=== PATIENT | female | born 1935 | race Caucasian/White ===

== ENCOUNTER 2021-05-27 14:27 | Inpatient (IN) | payer MEDICARE ==
[2021-05-27] MEDS ORDERED: Sodium Chloride 0.9% 10 ML Syringe FLUSH PRN ×2 (15:15→19:11)
[2021-05-27] MEDS ORDERED: Bumetanide 1 MG/4 ML MDV IVPUSH ONE (15:16)
--- NOTE | 2021-05-27 15:21 | EDM.PDOC ---
ED HPI GENERAL MEDICAL PROBLEM - General Chief Complaint: Cardiovascular Problem Stated Complaint: MEDICAL [facility] Time Seen by Provider: 05/27/21 15:07 Source of Information: Reports: Patient, Family, RN Notes Reviewed History Limitations: Reports: No Limitations - History of Present Illness INITIAL COMMENTS - FREE TEXT/NARRATIVE: 45-year-old female presents emergency department today via EMS services for increasing shortness of breath. She has a known history of congestive heart failure has had some problems with chronic anemia of unknown etiology. Was recently admitted the hospital in [place] end of April evaluation of the GI bleed unfortunately colonoscopy could not be completed and etiology is still yet unknown. States over the last 2 days progressively more short of breath usually uses oxygen at night but now has become oxygen dependent all the time has seen the increase fluid retention in her legs above the knee will get short of breath with any exertion at all become so weak she cannot bear weight. - Related Data Allergies Allergy/AdvReac Type Severity Reaction Status Date / Time No Known Allergies Allergy Verified 05/27/21 14:36 Home Meds: Home Meds Acetaminophen [Tylenol Arthritis] 650 mg PO Q8HR 05/27/21 [History] Bumetanide 1 mg PO DAILY 05/27/21 [History] Losartan [Cozaar] 50 mg PO DAILY 05/27/21 [History] Metoprolol Succinate 50 mg PO DAILY 05/27/21 [History] Nitroglycerin [Nitrostat] 0.4 mg SL ASDIRECTED PRN 05/27/21 [History] Rivaroxaban [Xarelto] 20 mg PO DAILY 05/27/21 [History] Simvastatin 20 mg PO DAILY 05/27/21 [History] Spironolactone [Aldactone] 25 mg PO DAILY 05/27/21 [History] amLODIPine [Norvasc] 5 mg PO DAILY 05/27/21 [History] Past Medical History Cardiovascular History: Reports: Afib, Heart Failure, High Cholesterol, Hypertension Respiratory History: Reports: Other (See Below) (Pulmonary hypertension) Gastrointestinal History: Reports: GI Bleed Oncologic (Cancer) History: Reports: Breast Social & Family History - Tobacco Use Tobacco Use Status *Q: Never Tobacco User ED ROS GENERAL - Review of Systems Review Of Systems: See Below Constitutional: Reports: Weakness, Fatigue. Denies: Fever, Chills HEENT: Reports: No Symptoms Respiratory: Reports: Shortness of Breath Cardiovascular: Reports: Dyspnea on Exertion, Edema GI/Abdominal: Reports: No Symptoms ED EXAM, GENERAL - Physical Exam Exam: See Below Exam Limited By: No Limitations General Appearance: Alert, Mild Distress Neck: Other (Differential +3) Respiratory/Chest: Chest Non-Tender, Decreased Breath Sounds, Crackles Cardiovascular: Irregularly Irregular GI/Abdominal: Soft, Non-Tender Extremities: Pedal Edema #1 Interpretation EKG Date: 05/27/21 Time: 15:57 Rhythm: A-Fib Rate (Beats/Min): 94 [place]: RAD-Right [place] Deviation P-Wave: Absent QRS: Normal ST-T: Normal QT: Normal Comparison: NA - No Prior EKG Course - Vital Signs Last Recorded V/S: Last Vital Signs Temp 98.1 F 05/27/21 17:27 Pulse 75 05/27/21 17:51 Resp 19 05/27/21 17:51 BP 88/40 L 05/27/21 17:51 Pulse Ox 99 05/27/21 17:51 - Orders/Labs/Meds Orders: Active Orders 24 hr Category Date Time Status Cardiac Monitoring [RC] .As Directed Care 05/27/21 15:15 Active Chest 1V Frontal [CR] Stat Exams 05/27/21 15:16 Taken PATIENT RETYPE [BBK] Stat Lab 05/27/21 15:56 Results RED BLOOD CELLS LP [BBK] Stat Lab 05/27/21 15:56 Results TYPE AND SCREEN [BBK] Stat Lab 05/27/21 15:56 Results Sodium Chloride 0.9% [Saline Flush] Med 05/27/21 15:15 Active 10 ml FLUSH ASDIRECTED PRN Isolation [COMM] Stat Oth 05/27/21 15:19 Ordered Saline Lock Insert [OM.PC] Stat Oth 05/27/21 15:15 Ordered EKG 12 Lead [EK] Stat Ther 05/27/21 15:16 Ordered Medication Orders Sodium Chloride (Sodium Chloride 0.9% 10 Ml Syringe) 10 ml FLUSH ASDIRECTED PRN PRN Reason: Keep Vein Open Last Admin: 05/27/21 16:43 Dose: 10 ml Documented by: KETTY Labs: Laboratory Tests 05/27/21 05/27/21 05/27/21 Range/Units 15:19 15:30 15:30 WBC 7.6 (4.5-11.0) K/uL RBC 2.10 L (3.30-5.50) M/uL Hgb 5.6 L* (12.0-15.0) g/dL Hct 19.6 L (36.0-48.0) % MCV 93 (80-98) fL MCH 27 (27-31) pg MCHC 29 L (32-36) % Plt Count 260 (150-400) K/uL Neut % (Auto) 82.2 H (36-66) % Lymph % (Auto) 7.3 L (24-44) % [place] % (Auto) 8.9 H (2-6) % Eos % (Auto) 1.1 L (2-4) % Baso % (Auto) 0.5 (0-1) % Sodium 139 L (140-148) mmol/L Potassium 5.6 H (3.6-5.2) mmol/L Chloride 102 (100-108) mmol/L Carbon Dioxide 30 (21-32) mmol/L Anion Gap 12.6 (5.0-14.0) mmol/L BUN 90 H* (7-18) mg/dL Creatinine 1.5 H (0.6-1.0) mg/dL Est Cr Clr Drug Dosing 22.08 mL/min Estimated GFR (MDRD) 33 L (>60) Glucose 112 H (74-106) mg/dL Lactic Acid (0.4-2.0) mmol/L Calcium 8.9 (8.5-10.1) mg/dL Total Bilirubin 0.4 (0.2-1.0) mg/dL AST 9 L (15-37) U/L ALT 15 (12-78) U/L Alkaline Phosphatase 51 (46-116) U/L Troponin I High Sens 20.1 (<=60.3) pg/mL NT-Pro-B Natriuret Pep 6459 H (5-450) pg/mL Total Protein 5.9 L (6.4-8.2) g/dL Albumin 3.5 (3.4-5.0) g/dL Globulin 2.4 (2.3-3.5) g/dL Albumin/Globulin Ratio 1.5 (1.2-2.2) Influenza Type A RNA Negative (NEGATIVE) RSV RNA (INAAT) Negative (NEGATIVE) Influenza Type B RNA Negative (NEGATIVE) SARS-CoV-2 RNA (LLOYD) Negative (NEGATIVE) Blood Type Gel Antibody Screen Crossmatch 05/27/21 05/27/21 Range/Units 15:30 15:56 WBC (4.5-11.0) K/uL RBC (3.30-5.50) M/uL Hgb (12.0-15.0) g/dL Hct (36.0-48.0) % MCV (80-98) fL MCH (27-31) pg MCHC (32-36) % Plt Count (150-400) K/uL Neut % (Auto) (36-66) % Lymph % (Auto) (24-44) % Armstrong % (Auto) (2-6) % Eos % (Auto) (2-4) % Baso % (Auto) (0-1) % Sodium (140-148) mmol/L Potassium (3.6-5.2) mmol/L Chloride (100-108) mmol/L Carbon Dioxide (21-32) mmol/L Anion Gap (5.0-14.0) mmol/L BUN (7-18) mg/dL Creatinine (0.6-1.0) mg/dL Est Cr Clr Drug Dosing mL/min Estimated GFR (MDRD) (>60) Glucose (74-106) mg/dL Lactic Acid 1.5 (0.4-2.0) mmol/L Calcium (8.5-10.1) mg/dL Total Bilirubin (0.2-1.0) mg/dL AST (15-37) U/L ALT (12-78) U/L Alkaline Phosphatase (46-116) U/L Troponin I High Sens (<=60.3) pg/mL NT-Pro-B Natriuret Pep (5-450) pg/mL Total Protein (6.4-8.2) g/dL Albumin (3.4-5.0) g/dL Globulin (2.3-3.5) g/dL Albumin/Globulin Ratio (1.2-2.2) Influenza Type A RNA (NEGATIVE) RSV RNA (INAAT) (NEGATIVE) Influenza Type B RNA (NEGATIVE) SARS-CoV-2 RNA (LLOYD) (NEGATIVE) Blood Type O POSITIVE Gel Antibody Screen Negative Crossmatch See Detail Meds: Medications Generic Name Dose Route Start Last Admin Trade Name Freq PRN Reason Stop Dose Admin Sodium Chloride 10 ml 05/27/21 15:15 05/27/21 16:43 Sodium Chloride 0.9% 10 Ml Syringe FLUSH 10 ml ASDIRECTED PRN Administration Keep Vein Open Discontinued Medications Generic Name Dose Route Start Last Admin Trade Name Freq PRN Reason Stop Dose Admin Bumetanide 2 mg 05/27/21 15:16 05/27/21 16:42 Bumetanide 1 Mg/4 Ml Mdv IVPUSH 05/27/21 15:17 1 mg ONETIME ONE Administration - Re-Assessments/Exams Free Text/Narrative Re-Assessment/Exam: 05/27/21 16:54 Called discussed case the hospitalist on-call at 1630 felt she was not appropriate admission for this facility recommend transfer to higher level clear called discussed the case with [facility] and [facility] no beds are available at this time she is on the list at [facility] Departure - Departure Time of Disposition: 17:54 Disposition: Admitted As Inpatient 67 Condition: Fair Clinical Impression: Severe anemia CHF exacerbation Qualifiers: Heart failure type: unspecified Qualified Code(s): I50.9 - Heart failure, unspecified Referrals: PCP,None [Ordering Only Provider] - Forms: ED Department Discharge Sepsis Event Note (ED) - Evaluation Sepsis Screening Result: No Definite Risk - Focused Exam Vital Signs: Vital Signs Temp Temp Pulse Resp BP Pulse Ox 05/27/21 17:51 75 19 88/40 L 99 05/27/21 17:27 98.1 F 24 H 106/49 L 100 05/27/21 17:15 68 22 H 108/57 L 100 05/27/21 16:49 87 19 102/52 L 100 05/27/21 15:36 84 17 98/45 L 100 05/27/21 14:35 98.2 F 83 20 100/45 L 100 - My Orders Last 24 Hours: My Active Orders 05/27/21 15:15 Cardiac Monitoring [RC] .As Directed Sodium Chloride 0.9% [Saline Flush] 10 ml FLUSH ASDIRECTED PRN Saline Lock Insert [OM.PC] Stat 05/27/21 15:16 Chest 1V Frontal [CR] Stat EKG 12 Lead [EK] Stat 05/27/21 15:19 Isolation [COMM] Stat 05/27/21 15:56 PATIENT RETYPE [BBK] Stat RED BLOOD CELLS LP [BBK] Stat TYPE AND SCREEN [BBK] Stat - Assessment/Plan Last 24 Hours: My Active Orders 05/27/21 15:15 Cardiac Monitoring [RC] .As Directed Sodium Chloride 0.9% [Saline Flush] 10 ml FLUSH ASDIRECTED PRN Saline Lock Insert [OM.PC] Stat 05/27/21 15:16 Chest 1V Frontal [CR] Stat EKG 12 Lead [EK] Stat 05/27/21 15:19 Isolation [COMM] Stat 05/27/21 15:56 PATIENT RETYPE [BBK] Stat RED BLOOD CELLS LP [BBK] Stat TYPE AND SCREEN [BBK] Stat Plan: Assessment Acuity = acute Site and laterality = exacerbation congestive heart failure with severe anemia Etiology = unknown Manifestations = dyspnea Location of injury = Home Lab values = hemoglobin low at 5.6 consistent with normochromic anemia potassium elevated 5.6 consistent with hyperkalemia BUN elevated 90 creatinine elevated 1.5 consistent chronic renal failure stage T3a lactic acid normal 1.5 BNP markedly elevated 6459 consistent with marked fluid overload chest x-ray shows cardiomegaly, Covid was negative influenza AMB negative RSV negative Plan Discussed the case with hospitalist he agreed to admit to the hospital pending transfer This note was dictated using [employer] voice recognition software please call with any questions on syntax or grammar.
[2021-05-27 16:33] LABS: CORONAVIRUS COVID-19 NAA NEGATIVE (NEGATIVE)
--- NOTE | 2021-05-27 19:08 | PCM.HP.2 ---
H&P History of Present Illness - General Date of Service: 05/27/21 Admit Problem/Dx: Admission Diagnosis/Problem Admission Diagnosis/Problem Anemia Source of Information: Patient, Family, Provider, RN Notes Reviewed History Limitations: Reports: No Limitations - History of Present Illness Initial Comments - Free Text/Narative: Ms. Whiting is an 85-year-old woman who was admitted through the emergency department with weakness, shortness of breath, peripheral edema, hypoxia, secondary to CHF exacerbation and severe anemia. She has a known history of anemia and probable GI bleed, source of which has not been identified. She apparently did undergo EGD and colonoscopy in [place]. EGD reportedly showed no obvious source of bleeding and the colonoscopy was incomplete. They recommended further evaluation including virtual colonoscopy with CT scan and possible labeled red blood cell study. She has known diastolic congestive heart failure as well as severe pulmonary hypertension with cor pulmonale. Over the past week she has become extremely weak to the point that she is unable to walk and is short of breath even at rest. She has noted intermittent episodes of melenic appearing stool. There has been a significant increase in her peripheral edema. She does have underlying chronic kidney disease stage IIIb. Evaluation in the emergency department she was found to be hypoxic which has been corrected with supplemental oxygen. Hemoglobin was severely low at 5.6 and she has started transfusion of 1 unit of red blood cells. Plan had been for transfer to a tertiary care center but there are no beds available [facility]. - Related Data Allergies/Adverse Reactions: Allergies Allergy/AdvReac Type Severity Reaction Status Date / Time No Known Allergies Allergy Verified 05/27/21 14:36 Home Medications: Home Meds Acetaminophen [Tylenol Arthritis] 650 mg PO Q8HR 05/27/21 [History] Bumetanide 1 mg PO DAILY 05/27/21 [History] Losartan [Cozaar] 50 mg PO DAILY 05/27/21 [History] Metoprolol Succinate 50 mg PO DAILY 05/27/21 [History] Nitroglycerin [Nitrostat] 0.4 mg SL ASDIRECTED PRN 05/27/21 [History] Rivaroxaban [Xarelto] 20 mg PO DAILY 05/27/21 [History] Simvastatin 20 mg PO DAILY 05/27/21 [History] Spironolactone [Aldactone] 25 mg PO DAILY 05/27/21 [History] amLODIPine [Norvasc] 5 mg PO DAILY 05/27/21 [History] Past Medical History Cardiovascular History: Reports: Afib, Heart Failure, High Cholesterol, Hypertension Respiratory History: Reports: Other (See Below) (Pulmonary hypertension) Gastrointestinal History: Reports: GI Bleed Oncologic (Cancer) History: Reports: Breast Social & Family History - Tobacco Use Tobacco Use Status *Q: Never Tobacco User H&P Review of Systems - Review of Systems: Review Of Systems: See Below General: Reports: Malaise, Weakness, Fatigue, Decreased Appetite. Denies: Fever, Chills HEENT: Reports: No Symptoms Pulmonary: Reports: Shortness of Breath. Denies: Wheezing, Pleuritic Chest Pain, Cough, Sputum, Hemoptysis Cardiovascular: Reports: Dyspnea on Exertion, Edema. Denies: Chest Pain, Palpitations, Orthopnea, PND, Lightheadedness Gastrointestinal: Reports: No Symptoms Genitourinary: Reports: No Symptoms Musculoskeletal: Reports: Joint Pain (Chronic bilateral knee pain) Skin: Reports: No Symptoms Psychiatric: Reports: No Symptoms Neurological: Reports: No Symptoms Hematologic/Lymphatic: Reports: No Symptoms Immunologic: Reports: No Symptoms Exam - Exam Exam: See Below - Vital Signs Vital Signs: Last Vital Signs Temp 98.1 F 05/27/21 17:27 Pulse 75 05/27/21 17:51 Resp 19 05/27/21 17:51 BP 88/40 L 05/27/21 17:51 Pulse Ox 99 05/27/21 17:51 Weight: 170 lb - Exam Quality Assessment: Supplemental Oxygen, DVT Prophylaxis General: Alert, Oriented, Cooperative, Mild Distress HEENT: Conjunctiva Clear, Hearing Intact, Mucosa Moist & [place], Normal Nasal Septum, Posterior Pharynx Clear, Pupils Equal Neck: Supple, Trachea Midline Lungs: Clear to Auscultation, Normal Respiratory Effort, Decreased Breath Sounds. No: Rales, Rhonchi, Wheezing Cardiovascular: Regular Rate, Normal S1, Normal S2, Irregular Rhythm, Systolic Murmur. No: Diastolic Murmur GI/Abdominal Exam: Soft, Non-Tender, No Organomegaly, No Distention Back Exam: Normal Inspection, Full Range of Motion Extremities: Non-Tender, Pedal Edema Skin: Warm, Dry, Intact Neurological: Cranial Nerves Intact, Strength Equal Bilateral, Normal Speech, Normal Tone, Sensation Intact. No: Focal Deficit Neuro Extensive - Mental Status: Alert, Oriented x3, Normal Mood/Affect, Normal Cognition, Memory Intact - Patient Data Lab Results Last 24 hrs: Laboratory Results - last 24 hr 05/27/21 05/27/21 05/27/21 Range/Units 15:19 15:30 15:30 WBC 7.6 (4.5-11.0) K/uL RBC 2.10 L (3.30-5.50) M/uL Hgb 5.6 L* (12.0-15.0) g/dL Hct 19.6 L (36.0-48.0) % MCV 93 (80-98) fL MCH 27 (27-31) pg MCHC 29 L (32-36) % Plt Count 260 (150-400) K/uL Neut % (Auto) 82.2 H (36-66) % Lymph % (Auto) 7.3 L (24-44) % Reynolds % (Auto) 8.9 H (2-6) % Eos % (Auto) 1.1 L (2-4) % Baso % (Auto) 0.5 (0-1) % Sodium 139 L (140-148) mmol/L Potassium 5.6 H (3.6-5.2) mmol/L Chloride 102 (100-108) mmol/L Carbon Dioxide 30 (21-32) mmol/L Anion Gap 12.6 (5.0-14.0) mmol/L BUN 90 H* (7-18) mg/dL Creatinine 1.5 H (0.6-1.0) mg/dL Est Cr Clr Drug Dosing 22.08 mL/min Estimated GFR (MDRD) 33 L (>60) Glucose 112 H (74-106) mg/dL Lactic Acid (0.4-2.0) mmol/L Calcium 8.9 (8.5-10.1) mg/dL Total Bilirubin 0.4 (0.2-1.0) mg/dL AST 9 L (15-37) U/L ALT 15 (12-78) U/L Alkaline Phosphatase 51 (46-116) U/L Troponin I High Sens 20.1 (<=60.3) pg/mL NT-Pro-B Natriuret Pep 6459 H (5-450) pg/mL Total Protein 5.9 L (6.4-8.2) g/dL Albumin 3.5 (3.4-5.0) g/dL Globulin 2.4 (2.3-3.5) g/dL Albumin/Globulin Ratio 1.5 (1.2-2.2) Influenza Type A RNA Negative (NEGATIVE) RSV RNA (INAAT) Negative (NEGATIVE) Influenza Type B RNA Negative (NEGATIVE) SARS-CoV-2 RNA (LLOYD) Negative (NEGATIVE) Blood Type Gel Antibody Screen Crossmatch 05/27/21 05/27/21 Range/Units 15:30 15:56 WBC (4.5-11.0) K/uL RBC (3.30-5.50) M/uL Hgb (12.0-15.0) g/dL Hct (36.0-48.0) % MCV (80-98) fL MCH (27-31) pg MCHC (32-36) % Plt Count (150-400) K/uL Neut % (Auto) (36-66) % Lymph % (Auto) (24-44) % [place] % (Auto) (2-6) % Eos % (Auto) (2-4) % Baso % (Auto) (0-1) % Sodium (140-148) mmol/L Potassium (3.6-5.2) mmol/L Chloride (100-108) mmol/L Carbon Dioxide (21-32) mmol/L Anion Gap (5.0-14.0) mmol/L BUN (7-18) mg/dL Creatinine (0.6-1.0) mg/dL Est Cr Clr Drug Dosing mL/min Estimated GFR (MDRD) (>60) Glucose (74-106) mg/dL Lactic Acid 1.5 (0.4-2.0) mmol/L Calcium (8.5-10.1) mg/dL Total Bilirubin (0.2-1.0) mg/dL AST (15-37) U/L ALT (12-78) U/L Alkaline Phosphatase (46-116) U/L Troponin I High Sens (<=60.3) pg/mL NT-Pro-B Natriuret Pep (5-450) pg/mL Total Protein (6.4-8.2) g/dL Albumin (3.4-5.0) g/dL Globulin (2.3-3.5) g/dL Albumin/Globulin Ratio (1.2-2.2) Influenza Type A RNA (NEGATIVE) RSV RNA (INAAT) (NEGATIVE) Influenza Type B RNA (NEGATIVE) SARS-CoV-2 RNA (LLOYD) (NEGATIVE) Blood Type O POSITIVE Gel Antibody Screen Negative Crossmatch See Detail Result Diagrams: 05/27/21 15:30 05/27/21 15:30 Sepsis Event Note - Evaluation Sepsis Screening Result: No Definite Risk - Focused Exam Vital Signs: Vital Signs Temp Temp Pulse Resp BP Pulse Ox 05/27/21 17:51 75 19 88/40 L 99 05/27/21 17:27 98.1 F 24 H 106/49 L 100 05/27/21 17:15 68 22 H 108/57 L 100 05/27/21 16:49 87 19 102/52 L 100 05/27/21 15:36 84 17 98/45 L 100 05/27/21 14:35 98.2 F 83 20 100/45 L 100 *Q Meaningful Use (ADM) - VTE *Q VTE Pharmacological Contraindications *Q: High INR Value - VTE Risk Assess *Q Each Risk Factor Represents 1 Point: Swollen Legs, Current, Obesity ( BMI > 25 kg/m2), Congestive heart failure (CHF) Total Score 1 Point Risk Factors: 3 Each Risk Factor Represents 2 Points: Malignancy (present or previous) Total Score 2 Point Risk Factors: 2 Each Risk Factor Represents 3 Points: Age 75 Years or Greater Total Score 3 Point Risk Factors: 3 Each Risk Factor Represents 5 Points: None Total Score 5 Point Risk Factors: 0 Venous Thromboembolism Risk Factor Score *Q: 8 Problem List Initiated/Reviewed/Updated: Yes Orders Last 24hrs: Active Orders 24 hr Category Date Time Status Patient Status Manage Transfer [TRANSFER] Routine ADT 05/27/21 18:51 Active Cardiac Monitoring [RC] .As Directed Care 05/27/21 15:15 Active Chest 1V Frontal [CR] Stat Exams 05/27/21 15:16 Taken PATIENT RETYPE [BBK] Stat Lab 05/27/21 15:56 Results RED BLOOD CELLS LP [BBK] Stat Lab 05/27/21 15:56 Results TYPE AND SCREEN [BBK] Stat Lab 05/27/21 15:56 Results Sodium Chloride 0.9% [Saline Flush] Med 05/27/21 15:15 Active 10 ml FLUSH ASDIRECTED PRN Isolation [COMM] Stat Oth 05/27/21 15:19 Ordered Saline Lock Insert [OM.PC] Stat Oth 05/27/21 15:15 Ordered Resuscitation Status Routine Resus Stat 05/27/21 18:57 Ordered EKG 12 Lead [EK] Stat Ther 05/27/21 15:16 Ordered Medication Orders Sodium Chloride (Sodium Chloride 0.9% 10 Ml Syringe) 10 ml FLUSH ASDIRECTED PRN PRN Reason: Keep Vein Open Last Admin: 05/27/21 16:43 Dose: 10 ml Documented by: KETTY Assessment/Plan Comment:: ASSESSMENT AND PLAN SEVERE ANEMIA-likely secondary to chronic intermittent GI bleed. Complicated by current anticoagulation with Xarelto. Previous evaluation in [place] included incomplete colonoscopy and EGD with no obvious source of blood loss according to patient history. -Transfuse 1 unit of red blood cells as ordered in the emergency department -Protonix -Follow-up hemoglobin this evening and in a.m. -Type and cross to hold 1 additional unit of red blood cells -Goal hemoglobin of greater than 8 because of underlying health problems including diastolic congestive heart failure, hypoxia, and pulmonary hypertension with cor pulmonale -Continue Xarelto for now, may need to discontinue because of ongoing bleeding and complications of her severe anemia DIASTOLIC CONGESTIVE HEART FAILURE/PULMONARY HYPERTENSION-she has been seen by cardiology earlier this year in [place] with recommendation for further evaluation concerning her pulmonary hypertension. -Hold Norvasc and diuretic therapy -Continue all other outpatient CHF medications -Bumex IV given in the emergency department, hold on further diuretic therapy tonight, reassess in a.m. HYPERKALEMIA-likely secondary to intravascular volume depletion and chronic kidney disease -Kayexalate 15 g p.o. tonight -Reassess potassium in a.m. CHRONIC KIDNEY DISEASE STAGE IIIb -Closely monitor renal function and urine output CHRONIC ATRIAL FIBRILLATION -Continue Xarelto as above MAINTENANCE ISSUES -DVT prophylaxis; current therapy with Xarelto should provide adequate DVT prophylaxis -GI prophylaxis; Protonix as above -Barnhart catheter; not indicated -Nutrition; clear liquid diet -Nicotine dependence; not required CODE STATUS-FULL CODE, discussed with patient and daughter, she is considering her options for ongoing management. She would like to remain full code at this time. ADMISSION STATUS-patient will be admitted to inpatient status, expect at least a 2 night hospital stay for evaluation and management of problems as outlined above. At the time of this admission I do not reasonably expected evaluation and management of this problem will require more than a 96 hour hospital stay. DISPOSITION-anticipate discharge to home after the hospital stay. PRIMARY CARE PROVIDER-she is currently in the process of establishing care with a primary care provider - Mortality Measure Prognosis:: Poor
[2021-05-27] MEDS ORDERED: Ondansetron 4 MG/2 ML SDV IV PRN (19:11)
[2021-05-27] MEDS ORDERED: Polyethylene Glycol 3350 Powder 17 GM Packet PO PRN (19:11)
[2021-05-27] MEDS ORDERED: Sodium Polystyrene Sulfonate 15 GM/60 ML Susp 60 ML Bot PO ONE (19:11)
[2021-05-27] MEDS: Pantoprazole 40 MG Vial IV SCH (20:27)
[2021-05-28] MEDS: Losartan 50 MG Tab PO SCH (08:59)
[2021-05-28] MEDS ORDERED: Non-Formulary Medication 1 Each (Simvastatin [Simvastatin] 20 MG Tablet) PO SCH (09:00)
[2021-05-28] MEDS: atorvaSTATin 10 MG Tab PO SCH (09:00)
[2021-05-28] MEDS: Spironolactone 25 MG Tab PO SCH (09:02)
[2021-05-28] MEDS: Metoprolol Succinate 50 MG Tab.ER PO SCH (09:03)
[2021-05-28] MEDS: Pantoprazole 40 MG Vial IV SCH (09:03)
--- NOTE | 2021-05-28 09:13 | CR ---
CHEST: Portable 05/27/2021 at 3:34 PM CLINICAL HISTORY:Chest pain COMPARISON:None FINDINGS: The heart is enlarged. Pulmonary vascular is normal. There is a left pleural effusion. There is some patchy density in both infrahilar regions. There are atherosclerotic changes in the aorta. Impression: Cardiomegaly. Small left pleural effusion Bilateral infrahilar airspace disease may represent patchy atelectasis or infiltrate. Upright two-view chest would be helpful if clinically relevant
--- NOTE | 2021-05-28 10:28 | PCM.PN ---
- General Info Date of Service: 05/28/21 Subjective Update: No acute events overnight. Patient does not really feel any different today than yesterday. Still feels tired, weak and short of breath. In the morning she has a cough with some clear sputum. No fevers. No melena or hematochezia. Hemoglobin level essentially stable from last night to this morning. Still requiring 2 L of supplemental oxygen. Lower extremity edema is about the same as yesterday. Kidney function stable. Potassium has improved. Functional Status: Reports: Pain Controlled, Tolerating Diet - Review of Systems General: Reports: Weakness Pulmonary: Reports: Shortness of Breath, Cough Cardiovascular: Reports: Edema - Patient Data Vitals - Most Recent: Last Vital Signs Temp 36.7 C 05/28/21 08:00 Pulse 81 05/28/21 10:00 Resp 23 H 05/28/21 10:00 BP 106/69 05/28/21 10:00 Pulse Ox 94 L 05/28/21 10:00 Weight - Most Recent: 86.682 kg I&O - Last 24 Hours: Intake & Output 05/27/21 05/28/21 05/28/21 22:59 06:59 14:59 Intake Total 0 882 Output Total 100 275 Balance -100 607 Lab Results Last 24 Hours: Laboratory Results - last 24 hr 05/27/21 05/27/21 05/27/21 Range/Units 15:19 15:30 15:30 WBC 7.6 (4.5-11.0) K/uL RBC 2.10 L (3.30-5.50) M/uL Hgb 5.6 L* (12.0-15.0) g/dL Hct 19.6 L (36.0-48.0) % MCV 93 (80-98) fL MCH 27 (27-31) pg MCHC 29 L (32-36) % Plt Count 260 (150-400) K/uL Neut % (Auto) 82.2 H (36-66) % Lymph % (Auto) 7.3 L (24-44) % Loving % (Auto) 8.9 H (2-6) % Eos % (Auto) 1.1 L (2-4) % Baso % (Auto) 0.5 (0-1) % Sodium 139 L (140-148) mmol/L Potassium 5.6 H (3.6-5.2) mmol/L Chloride 102 (100-108) mmol/L Carbon Dioxide 30 (21-32) mmol/L Anion Gap 12.6 (5.0-14.0) mmol/L BUN 90 H* (7-18) mg/dL Creatinine 1.5 H (0.6-1.0) mg/dL Est Cr Clr Drug Dosing 22.08 mL/min Estimated GFR (MDRD) 33 L (>60) Glucose 112 H (74-106) mg/dL Lactic Acid (0.4-2.0) mmol/L Calcium 8.9 (8.5-10.1) mg/dL Magnesium (1.8-2.4) mg/dL Total Bilirubin 0.4 (0.2-1.0) mg/dL AST 9 L (15-37) U/L ALT 15 (12-78) U/L Alkaline Phosphatase 51 (46-116) U/L Troponin I High Sens 20.1 (<=60.3) pg/mL NT-Pro-B Natriuret Pep 6459 H (5-450) pg/mL Total Protein 5.9 L (6.4-8.2) g/dL Albumin 3.5 (3.4-5.0) g/dL Globulin 2.4 (2.3-3.5) g/dL Albumin/Globulin Ratio 1.5 (1.2-2.2) Influenza Type A RNA Negative (NEGATIVE) RSV RNA (INAAT) Negative (NEGATIVE) Influenza Type B RNA Negative (NEGATIVE) SARS-CoV-2 RNA (LLOYD) Negative (NEGATIVE) Blood Type Gel Antibody Screen Crossmatch 05/27/21 05/27/21 05/28/21 Range/Units 15:30 15:56 00:16 WBC (4.5-11.0) K/uL RBC (3.30-5.50) M/uL Hgb 7.7 L D (12.0-15.0) g/dL Hct (36.0-48.0) % MCV (80-98) fL MCH (27-31) pg MCHC (32-36) % Plt Count (150-400) K/uL Neut % (Auto) (36-66) % Lymph % (Auto) (24-44) % Loving % (Auto) (2-6) % Eos % (Auto) (2-4) % Baso % (Auto) (0-1) % Sodium (140-148) mmol/L Potassium (3.6-5.2) mmol/L Chloride (100-108) mmol/L Carbon Dioxide (21-32) mmol/L Anion Gap (5.0-14.0) mmol/L BUN (7-18) mg/dL Creatinine (0.6-1.0) mg/dL Est Cr Clr Drug Dosing mL/min Estimated GFR (MDRD) (>60) Glucose (74-106) mg/dL Lactic Acid 1.5 (0.4-2.0) mmol/L Calcium (8.5-10.1) mg/dL Magnesium (1.8-2.4) mg/dL Total Bilirubin (0.2-1.0) mg/dL AST (15-37) U/L ALT (12-78) U/L Alkaline Phosphatase (46-116) U/L Troponin I High Sens (<=60.3) pg/mL NT-Pro-B Natriuret Pep (5-450) pg/mL Total Protein (6.4-8.2) g/dL Albumin (3.4-5.0) g/dL Globulin (2.3-3.5) g/dL Albumin/Globulin Ratio (1.2-2.2) Influenza Type A RNA (NEGATIVE) RSV RNA (INAAT) (NEGATIVE) Influenza Type B RNA (NEGATIVE) SARS-CoV-2 RNA (LLOYD) (NEGATIVE) Blood Type O POSITIVE Gel Antibody Screen Negative Crossmatch See Detail 05/28/21 05/28/21 Range/Units 04:58 04:58 WBC 7.3 (4.5-11.0) K/uL RBC 2.73 L (3.30-5.50) M/uL Hgb 7.4 L (12.0-15.0) g/dL Hct 25.1 L (36.0-48.0) % MCV 92 (80-98) fL MCH 27 (27-31) pg MCHC 30 L (32-36) % Plt Count 222 (150-400) K/uL Neut % (Auto) 80.1 H (36-66) % Lymph % (Auto) 8.1 L (24-44) % Loving % (Auto) 9.5 H (2-6) % Eos % (Auto) 1.7 L (2-4) % Baso % (Auto) 0.6 (0-1) % Sodium 140 (140-148) mmol/L Potassium 4.8 (3.6-5.2) mmol/L Chloride 102 (100-108) mmol/L Carbon Dioxide 31 (21-32) mmol/L Anion Gap 7.0 (5.0-14.0) mmol/L BUN 88 H* (7-18) mg/dL Creatinine 1.5 H (0.6-1.0) mg/dL Est Cr Clr Drug Dosing 22.08 mL/min Estimated GFR (MDRD) 33 L (>60) Glucose 118 H (74-106) mg/dL Lactic Acid (0.4-2.0) mmol/L Calcium 8.6 (8.5-10.1) mg/dL Magnesium 2.3 (1.8-2.4) mg/dL Total Bilirubin 0.7 D (0.2-1.0) mg/dL AST 9 L (15-37) U/L ALT 15 (12-78) U/L Alkaline Phosphatase 50 (46-116) U/L Troponin I High Sens (<=60.3) pg/mL NT-Pro-B Natriuret Pep (5-450) pg/mL Total Protein 5.5 L (6.4-8.2) g/dL Albumin 3.3 L (3.4-5.0) g/dL Globulin 2.2 L (2.3-3.5) g/dL Albumin/Globulin Ratio 1.5 (1.2-2.2) Influenza Type A RNA (NEGATIVE) RSV RNA (INAAT) (NEGATIVE) Influenza Type B RNA (NEGATIVE) SARS-CoV-2 RNA (LLOYD) (NEGATIVE) Blood Type Gel Antibody Screen Crossmatch Med Orders - Current: Current Medications Acetaminophen (Acetaminophen 325 Mg Tab) 650 mg PO Q4H PRN PRN Reason: Pain (Mild 1-3)/fever Atorvastatin Calcium (Atorvastatin 10 Mg Tab) 10 mg PO DAILY [facility] Last Admin: 05/28/21 09:00 Dose: 10 mg Documented by: Losartan Potassium (Losartan 50 Mg Tab) 50 mg PO DAILY [facility] Last Admin: 05/28/21 08:59 Dose: 50 mg Documented by: Metoprolol Succinate (Metoprolol Succinate 50 Mg Tab.Er) 50 mg PO DAILY [facility] Last Admin: 05/28/21 09:03 Dose: 50 mg Documented by: Ondansetron HCl (Ondansetron 4 Mg/2 Ml Sdv) 4 mg IV Q4H PRN PRN Reason: Nausea/Vomiting Polyethylene Glycol (Polyethylene Glycol 3350 Powder 17 Gm Packet) 17 gm PO DAILY PRN PRN Reason: Constipation Sodium Chloride (Sodium Chloride 0.9% 10 Ml Syringe) 10 ml FLUSH ASDIRECTED PRN PRN Reason: Keep Vein Open Spironolactone (Spironolactone 25 Mg Tab) 25 mg PO DAILY [facility] Last Admin: 05/28/21 09:02 Dose: 25 mg Documented by: Discontinued Medications Bumetanide (Bumetanide 1 Mg/4 Ml Mdv) 2 mg IVPUSH ONETIME ONE Stop: 05/27/21 15:17 Last Admin: 05/27/21 16:42 Dose: 1 mg Documented by: Pantoprazole Sodium (Pantoprazole 40 Mg Vial) 40 mg IV Q12H [facility] Last Admin: 05/28/21 09:03 Dose: 40 mg Documented by: Rivaroxaban (Rivaroxaban 10 Mg Tab) [facility] Sodium Chloride (Sodium Chloride 0.9% 10 Ml Syringe) 10 ml FLUSH ASDIRECTED PRN PRN Reason: Keep Vein Open Last Admin: 05/27/21 16:43 Dose: 10 ml Documented by: Sodium Polystyrene Sulfonate (Sodium Polystyrene Sulfonate 15 Gm/60 Ml Susp 60 Ml Bot) 15 gm PO ONETIME ONE Stop: 05/27/21 19:12 Last Admin: 05/27/21 20:28 Dose: 15 gm Documented by: - Exam Quality Assessment: Supplemental Oxygen General: Alert, Oriented, Cooperative, No Acute Distress Lungs: Normal Respiratory Effort. No: Crackles Cardiovascular: Regular Rate, Irregular Rhythm, Murmurs GI/Abdominal Exam: Soft, No Distention Extremities: Pedal Edema. No: Increased Warmth Skin: Warm, Dry Psy/Mental Status: Alert, Normal Affect - Patient Data Lab Results Last 24 hrs: Laboratory Results - last 24 hr 05/27/21 05/27/21 05/27/21 Range/Units 15:19 15:30 15:30 WBC 7.6 (4.5-11.0) K/uL RBC 2.10 L (3.30-5.50) M/uL Hgb 5.6 L* (12.0-15.0) g/dL Hct 19.6 L (36.0-48.0) % MCV 93 (80-98) fL MCH 27 (27-31) pg MCHC 29 L (32-36) % Plt Count 260 (150-400) K/uL Neut % (Auto) 82.2 H (36-66) % Lymph % (Auto) 7.3 L (24-44) % Loving % (Auto) 8.9 H (2-6) % Eos % (Auto) 1.1 L (2-4) % Baso % (Auto) 0.5 (0-1) % Sodium 139 L (140-148) mmol/L Potassium 5.6 H (3.6-5.2) mmol/L Chloride 102 (100-108) mmol/L Carbon Dioxide 30 (21-32) mmol/L Anion Gap 12.6 (5.0-14.0) mmol/L BUN 90 H* (7-18) mg/dL Creatinine 1.5 H (0.6-1.0) mg/dL Est Cr Clr Drug Dosing 22.08 mL/min Estimated GFR (MDRD) 33 L (>60) Glucose 112 H (74-106) mg/dL Lactic Acid (0.4-2.0) mmol/L Calcium 8.9 (8.5-10.1) mg/dL Magnesium (1.8-2.4) mg/dL Total Bilirubin 0.4 (0.2-1.0) mg/dL AST 9 L (15-37) U/L ALT 15 (12-78) U/L Alkaline Phosphatase 51 (46-116) U/L Troponin I High Sens 20.1 (<=60.3) pg/mL NT-Pro-B Natriuret Pep 6459 H (5-450) pg/mL Total Protein 5.9 L (6.4-8.2) g/dL Albumin 3.5 (3.4-5.0) g/dL Globulin 2.4 (2.3-3.5) g/dL Albumin/Globulin Ratio 1.5 (1.2-2.2) Influenza Type A RNA Negative (NEGATIVE) RSV RNA (INAAT) Negative (NEGATIVE) Influenza Type B RNA Negative (NEGATIVE) SARS-CoV-2 RNA (LLOYD) Negative (NEGATIVE) Blood Type Gel Antibody Screen Crossmatch 05/27/21 05/27/21 05/28/21 Range/Units 15:30 15:56 00:16 WBC (4.5-11.0) K/uL RBC (3.30-5.50) M/uL Hgb 7.7 L D (12.0-15.0) g/dL Hct (36.0-48.0) % MCV (80-98) fL MCH (27-31) pg MCHC (32-36) % Plt Count (150-400) K/uL Neut % (Auto) (36-66) % Lymph % (Auto) (24-44) % Loving % (Auto) (2-6) % Eos % (Auto) (2-4) % Baso % (Auto) (0-1) % Sodium (140-148) mmol/L Potassium (3.6-5.2) mmol/L Chloride (100-108) mmol/L Carbon Dioxide (21-32) mmol/L Anion Gap (5.0-14.0) mmol/L BUN (7-18) mg/dL Creatinine (0.6-1.0) mg/dL Est Cr Clr Drug Dosing mL/min Estimated GFR (MDRD) (>60) Glucose (74-106) mg/dL Lactic Acid 1.5 (0.4-2.0) mmol/L Calcium (8.5-10.1) mg/dL Magnesium (1.8-2.4) mg/dL Total Bilirubin (0.2-1.0) mg/dL AST (15-37) U/L ALT (12-78) U/L Alkaline Phosphatase (46-116) U/L Troponin I High Sens (<=60.3) pg/mL NT-Pro-B Natriuret Pep (5-450) pg/mL Total Protein (6.4-8.2) g/dL Albumin (3.4-5.0) g/dL Globulin (2.3-3.5) g/dL Albumin/Globulin Ratio (1.2-2.2) Influenza Type A RNA (NEGATIVE) RSV RNA (INAAT) (NEGATIVE) Influenza Type B RNA (NEGATIVE) SARS-CoV-2 RNA (LLOYD) (NEGATIVE) Blood Type O POSITIVE Gel Antibody Screen Negative Crossmatch See Detail 05/28/21 05/28/21 Range/Units 04:58 04:58 WBC 7.3 (4.5-11.0) K/uL RBC 2.73 L (3.30-5.50) M/uL Hgb 7.4 L (12.0-15.0) g/dL Hct 25.1 L (36.0-48.0) % MCV 92 (80-98) fL MCH 27 (27-31) pg MCHC 30 L (32-36) % Plt Count 222 (150-400) K/uL Neut % (Auto) 80.1 H (36-66) % Lymph % (Auto) 8.1 L (24-44) % Loving % (Auto) 9.5 H (2-6) % Eos % (Auto) 1.7 L (2-4) % Baso % (Auto) 0.6 (0-1) % Sodium 140 (140-148) mmol/L Potassium 4.8 (3.6-5.2) mmol/L Chloride 102 (100-108) mmol/L Carbon Dioxide 31 (21-32) mmol/L Anion Gap 7.0 (5.0-14.0) mmol/L BUN 88 H* (7-18) mg/dL Creatinine 1.5 H (0.6-1.0) mg/dL Est Cr Clr Drug Dosing 22.08 mL/min Estimated GFR (MDRD) 33 L (>60) Glucose 118 H (74-106) mg/dL Lactic Acid (0.4-2.0) mmol/L Calcium 8.6 (8.5-10.1) mg/dL Magnesium 2.3 (1.8-2.4) mg/dL Total Bilirubin 0.7 D (0.2-1.0) mg/dL AST 9 L (15-37) U/L ALT 15 (12-78) U/L Alkaline Phosphatase 50 (46-116) U/L Troponin I High Sens (<=60.3) pg/mL NT-Pro-B Natriuret Pep (5-450) pg/mL Total Protein 5.5 L (6.4-8.2) g/dL Albumin 3.3 L (3.4-5.0) g/dL Globulin 2.2 L (2.3-3.5) g/dL Albumin/Globulin Ratio 1.5 (1.2-2.2) Influenza Type A RNA (NEGATIVE) RSV RNA (INAAT) (NEGATIVE) Influenza Type B RNA (NEGATIVE) SARS-CoV-2 RNA (LLOYD) (NEGATIVE) Blood Type Gel Antibody Screen Crossmatch Result Diagrams: 05/28/21 04:58 05/28/21 04:58 Sepsis Event Note - Evaluation Sepsis Screening Result: No Definite Risk - Focused Exam Vital Signs: Vital Signs Temp Temp Pulse Pulse Resp BP BP 05/28/21 10:00 81 23 H 106/69 05/28/21 09:03 98 100/52 L 05/28/21 08:59 100/52 L 05/28/21 08:00 36.7 C 98 19 100/52 L 05/28/21 06:00 80 19 103/57 L 05/28/21 04:00 36.5 C 87 24 H 107/59 L 05/28/21 02:00 84 23 H 109/37 L 05/28/21 00:00 36.5 C 82 23 H 108/40 L 05/27/21 23:00 36.7 C 86 25 H 115/53 L 05/27/21 22:59 36.7 C 88 25 H 115/53 L 05/27/21 22:30 36.5 C 80 25 H 101/48 L Pulse Ox 05/28/21 10:00 94 L 05/28/21 09:03 05/28/21 08:59 05/28/21 08:00 96 05/28/21 06:00 98 05/28/21 04:00 96 05/28/21 02:00 94 L 05/28/21 00:00 94 L 05/27/21 23:00 93 L 05/27/21 22:59 93 L 05/27/21 22:30 93 L - Problem List Review Problem List Initiated/Reviewed/Updated: Yes - My Orders Last 24 Hours: My Active Orders 05/28/21 10:24 Scooter Bandage [RC] ROUTINE Communication Order [RC] DAILY 05/28/21 10:25 Transfuse Red Blood Cells [COMM] Routine 05/28/21 Lunch Mechanical Soft Diet [DIET] 05/28/21 15:00 Bumetanide [Bumex] 1 mg PO ONETIME ONE 05/29/21 05:00 BASIC METABOLIC PANEL,BMP [CHEM] Timed CBC W/O DIFF,HEMOGRAM [HEME] Timed (1) 05/29/21 09:00 Bumetanide [Bumex] 1 mg PO DAILY - Plan Plan:: ASSESSMENT AND PLAN - SEVERE ANEMIA-likely secondary to chronic intermittent GI bleed complicated by current anticoagulation with Xarelto. Previous evaluation in [place] included incomplete colonoscopy and EGD with no obvious source of blood loss according to patient history. -Transfuse 1 unit of pRBCs -Twice daily Protonix -Follow-up hemoglobin in a.m. -Goal hemoglobin of greater than 8 because of underlying health problems including diastolic congestive heart failure, hypoxia, and pulmonary hypertension with cor pulmonale -Hold anticoagulation, if it is restarted consider Eliquis with reduced renal function DIASTOLIC CONGESTIVE HEART FAILURE/PULMONARY HYPERTENSION-she has been seen by cardiology earlier this year in [place] with recommendation for further evaluation concerning her pulmonary hypertension. Total body volume increased but intravascular she still seems deplete. -Hold Norvasc and diuretic therapy -Continue all other outpatient CHF medications -Restart oral diuresis this afternoon after blood transfusion HYPERKALEMIA-improved overnight. -Reassess potassium in a.m. CHRONIC KIDNEY DISEASE STAGE IIIb-GFR stable in the low 30s. -Closely monitor renal function and urine output CHRONIC ATRIAL FIBRILLATION -Hold anticoagulation today, reassess tomorrow, consider Eliquis if the plan is to continue MAINTENANCE ISSUES -DVT prophylaxis; current therapy with Xarelto should provide adequate DVT prophylaxis -GI prophylaxis; Protonix as above -Barnhart catheter; not indicated -Nutrition; mechanical soft CODE STATUS-FULL CODE, discussed with patient and daughter, she is considering her options for ongoing management. She would like to remain full code at this time. DISPOSITION-anticipate discharge to home after the hospital stay. PRIMARY CARE PROVIDER-she is currently in the process of establishing care with a primary care provider
[2021-05-28] MEDS: Acetaminophen 325 MG Tab PO PRN ×3 (11:25→19:14)
[2021-05-28] MEDS ORDERED: Bumetanide 1 MG Tab PO ONE (15:00)
[2021-05-28] MEDS ORDERED: Albuterol 0.083% 2.5 MG/3 ML Neb Soln NEB PRN (15:29)
[2021-05-28] MEDS: Albuterol/Ipratropium 3.0-0.5 MG/3 ML Neb Soln NEB SCH ×2 (15:46→20:44)
[2021-05-28] MEDS ORDERED: Albuterol/Ipratropium 3.0-0.5 MG/3 ML Neb Soln ONE (15:53)
[2021-05-28] MEDS ORDERED: Rivaroxaban 10 MG Tab PO SCH (17:00)
[2021-05-29] MEDS: Albuterol/Ipratropium 3.0-0.5 MG/3 ML Neb Soln NEB SCH ×4 (07:17→20:26)
[2021-05-29] MEDS: Metoprolol Succinate 50 MG Tab.ER PO SCH (09:09)
[2021-05-29] MEDS: Bumetanide 1 MG Tab PO SCH (09:09)
[2021-05-29] MEDS: atorvaSTATin 10 MG Tab PO SCH (09:10)
[2021-05-29] MEDS: Losartan 50 MG Tab PO SCH (09:11)
[2021-05-29] MEDS: Spironolactone 25 MG Tab PO SCH (09:11)
--- NOTE | 2021-05-29 11:21 | PCM.PN ---
- General Info Date of Service: 05/29/21 Subjective Update: Ms. Whiting has been stable since yesterday with no evidence of active bleeding. Continues to experience significant edema in her thighs. Edema in the lower legs has improved significantly. Continues to appear fluid overloaded with probable intravascular volume depletion. Functional Status: Reports: Urinating - Review of Systems General: Reports: Weakness, Fatigue. Denies: Fever, Chills Pulmonary: Reports: Shortness of Breath. Denies: Pleuritic Chest Pain, Cough, Sputum, Hemoptysis, Wheezing Cardiovascular: Reports: Dyspnea on Exertion. Denies: Chest Pain, Palpitations, Orthopnea, PND, Edema, Lightheadedness Gastrointestinal: Reports: No Symptoms Genitourinary: Reports: No Symptoms - Patient Data Vitals - Most Recent: Last Vital Signs Temp 97.6 F 05/29/21 04:00 Pulse 90 05/29/21 09:09 Resp 12 05/29/21 10:00 BP 117/20 L 05/29/21 10:00 Pulse Ox 93 L 05/29/21 10:00 Weight - Most Recent: 191 lb 1.6 oz I&O - Last 24 Hours: Intake & Output 05/28/21 05/29/21 05/29/21 22:59 06:59 14:59 Intake Total 180 180 200 Output Total 825 600 300 Balance -208 -420 -100 Lab Results Last 24 Hours: Laboratory Results - last 24 hr 05/27/21 05/29/21 05/29/21 Range/Units 15:56 04:10 04:10 WBC 6.5 (4.5-11.0) K/uL RBC 3.11 L (3.30-5.50) M/uL Hgb 8.6 L (12.0-15.0) g/dL Hct 28.3 L (36.0-48.0) % MCV 91 (80-98) fL MCH 28 (27-31) pg MCHC 30 L (32-36) % Plt Count 211 (150-400) K/uL Sodium 143 (140-148) mmol/L Potassium 4.0 (3.6-5.2) mmol/L Chloride 104 (100-108) mmol/L Carbon Dioxide 33 H (21-32) mmol/L Anion Gap 10.0 (5.0-14.0) mmol/L BUN 82 H* (7-18) mg/dL Creatinine 1.2 H (0.6-1.0) mg/dL Est Cr Clr Drug Dosing 27.60 mL/min Estimated GFR (MDRD) 43 L (>60) Glucose 88 (74-106) mg/dL Calcium 8.6 (8.5-10.1) mg/dL Blood Type O POSITIVE Gel Antibody Screen Negative Crossmatch See Detail Med Orders - Current: Current Medications Acetaminophen (Acetaminophen 325 Mg Tab) 650 mg PO Q4H PRN PRN Reason: Pain (Mild 1-3)/fever Last Admin: 05/28/21 19:14 Dose: 650 mg Documented by: Albuterol (Albuterol 0.083% 2.5 Mg/3 Ml Neb Soln) 2.5 mg NEB Q4H PRN PRN Reason: shortness of breath/wheezing Albuterol/Ipratropium (Albuterol/Ipratropium 3.0-0.5 Mg/3 Ml Neb Soln) 3 ml NEB QIDRT [facility] Last Admin: 05/29/21 10:39 Dose: 3 ml Documented by: Atorvastatin Calcium (Atorvastatin 10 Mg Tab) 10 mg PO DAILY [facility] Last Admin: 05/29/21 09:10 Dose: 10 mg Documented by: Bumetanide (Bumetanide 1 Mg Tab) 1 mg PO DAILY [facility] Last Admin: 05/29/21 09:09 Dose: 1 mg Documented by: Losartan Potassium (Losartan 50 Mg Tab) 50 mg PO DAILY [facility] Last Admin: 05/29/21 09:11 Dose: 50 mg Documented by: Metoprolol Succinate (Metoprolol Succinate 50 Mg Tab.Er) 50 mg PO DAILY [facility] Last Admin: 05/29/21 09:09 Dose: 50 mg Documented by: Ondansetron HCl (Ondansetron 4 Mg/2 Ml Sdv) 4 mg IV Q4H PRN PRN Reason: Nausea/Vomiting Polyethylene Glycol (Polyethylene Glycol 3350 Powder 17 Gm Packet) 17 gm PO DAILY PRN PRN Reason: Constipation Sodium Chloride (Sodium Chloride 0.9% 10 Ml Syringe) 10 ml FLUSH ASDIRECTED PRN PRN Reason: Keep Vein Open Spironolactone (Spironolactone 25 Mg Tab) 25 mg PO DAILY [facility] Last Admin: 05/29/21 09:11 Dose: 25 mg Documented by: Discontinued Medications Albuterol/Ipratropium (Albuterol/Ipratropium 3.0-0.5 Mg/3 Ml Neb Soln) Confirm Administered Dose 3 ml .ROUTE .STK-MED ONE Stop: 05/28/21 15:54 Last Admin: 05/28/21 18:07 Dose: Not Given Documented by: Bumetanide (Bumetanide 1 Mg/4 Ml Mdv) 2 mg IVPUSH ONETIME ONE Stop: 05/27/21 15:17 Last Admin: 05/27/21 16:42 Dose: 1 mg Documented by: Bumetanide (Bumetanide 1 Mg Tab) 1 mg PO ONETIME ONE Stop: 05/28/21 15:01 Last Admin: 05/28/21 14:38 Dose: 1 mg Documented by: Pantoprazole Sodium (Pantoprazole 40 Mg Vial) 40 mg IV Q12H [facility] Last Admin: 05/28/21 09:03 Dose: 40 mg Documented by: Rivaroxaban (Rivaroxaban 10 Mg Tab) [facility] Sodium Chloride (Sodium Chloride 0.9% 10 Ml Syringe) 10 ml FLUSH ASDIRECTED PRN PRN Reason: Keep Vein Open Last Admin: 05/27/21 16:43 Dose: 10 ml Documented by: Sodium Polystyrene Sulfonate (Sodium Polystyrene Sulfonate 15 Gm/60 Ml Susp 60 Ml Bot) 15 gm PO ONETIME ONE Stop: 05/27/21 19:12 Last Admin: 05/27/21 20:28 Dose: 15 gm Documented by: - Exam Quality Assessment: Supplemental Oxygen, DVT Prophylaxis General: Alert, Oriented, Cooperative, Mild Distress Lungs: Clear to Auscultation, Normal Respiratory Effort Cardiovascular: Regular Rate, Regular Rhythm, No Murmurs GI/Abdominal Exam: Soft, Non-Tender, No Organomegaly, No Distention Extremities: Non-Tender, No Pedal Edema - Patient Data Lab Results Last 24 hrs: Laboratory Results - last 24 hr 05/27/21 05/29/21 05/29/21 Range/Units 15:56 04:10 04:10 WBC 6.5 (4.5-11.0) K/uL RBC 3.11 L (3.30-5.50) M/uL Hgb 8.6 L (12.0-15.0) g/dL Hct 28.3 L (36.0-48.0) % MCV 91 (80-98) fL MCH 28 (27-31) pg MCHC 30 L (32-36) % Plt Count 211 (150-400) K/uL Sodium 143 (140-148) mmol/L Potassium 4.0 (3.6-5.2) mmol/L Chloride 104 (100-108) mmol/L Carbon Dioxide 33 H (21-32) mmol/L Anion Gap 10.0 (5.0-14.0) mmol/L BUN 82 H* (7-18) mg/dL Creatinine 1.2 H (0.6-1.0) mg/dL Est Cr Clr Drug Dosing 27.60 mL/min Estimated GFR (MDRD) 43 L (>60) Glucose 88 (74-106) mg/dL Calcium 8.6 (8.5-10.1) mg/dL Blood Type O POSITIVE Gel Antibody Screen Negative Crossmatch See Detail Result Diagrams: 05/29/21 04:10 05/29/21 04:10 Sepsis Event Note - Evaluation Sepsis Screening Result: No Definite Risk - Focused Exam Vital Signs: Vital Signs Temp Pulse Pulse Resp BP BP Pulse Ox 05/29/21 10:00 12 117/20 L 93 L 05/29/21 09:11 125/37 L 05/29/21 09:09 90 125/37 L 05/29/21 08:00 20 107/36 L 95 05/29/21 06:00 78 24 H 100/30 L 93 L 05/29/21 04:00 97.6 F 81 19 105/36 L 97 05/29/21 02:00 78 17 104/32 L 95 05/29/21 00:00 97.6 F 93 24 H 94/33 L 93 L - Problem List Review Problem List Initiated/Reviewed/Updated: Yes - My Orders Last 24 Hours: My Active Orders 05/29/21 11:11 Resuscitation Status Routine 05/29/21 17:00 HGB [HEMOGLOBIN] [HEME] Stat 05/30/21 05:00 BASIC METABOLIC PANEL,BMP [CHEM] Timed CBC WITH AUTO DIFF [HEME] Timed - Plan Plan:: ASSESSMENT AND PLAN - SEVERE ANEMIA-likely secondary to chronic intermittent GI bleed complicated by current anticoagulation with Xarelto. Previous evaluation in [place] included incomplete colonoscopy and EGD with no obvious source of blood loss according to patient history. No evidence of active bleeding since admission. She has been transfused a total of 3 units of red blood cells -Twice daily Protonix -Follow-up hemoglobin this afternoon and in a.m. -Goal hemoglobin of greater than 8 because of underlying health problems including diastolic congestive heart failure, hypoxia, and pulmonary hypertension with cor pulmonale -Hold anticoagulation, if it is restarted consider Eliquis with reduced renal function DIASTOLIC CONGESTIVE HEART FAILURE/PULMONARY HYPERTENSION-she has been seen by cardiology earlier this year in [place] with recommendation for further evaluation concerning her pulmonary hypertension. Total body volume increased but intravascular she still seems deplete. -Hold Norvasc -Bumex 1 mg p.o. daily -Continue all other outpatient CHF medications HYPERKALEMIA-resolved -Reassess potassium in a.m. CHRONIC KIDNEY DISEASE STAGE IIIb-GFR stable in the low 30s. -Closely monitor renal function and urine output CHRONIC ATRIAL FIBRILLATION -Hold anticoagulation today, reassess tomorrow, consider Eliquis if the plan is to continue MAINTENANCE ISSUES -DVT prophylaxis; current therapy with Xarelto should provide adequate DVT prophylaxis -GI prophylaxis; Protonix as above -Barnhart catheter; not indicated -Nutrition; mechanical soft CODE STATUS-FULL CODE, discussed with patient and daughter, she is considering her options for ongoing management. She would like to remain full code at this time. DISPOSITION-anticipate discharge to home after the hospital stay. PRIMARY CARE PROVIDER-she is currently in the process of establishing care with a primary care provider
[2021-05-29] MEDS: Acetaminophen 325 MG Tab PO PRN (20:59)
[2021-05-30] MEDS: Albuterol/Ipratropium 3.0-0.5 MG/3 ML Neb Soln NEB SCH ×4 (07:11→20:39)
[2021-05-30] MEDS: Spironolactone 25 MG Tab PO SCH (09:02)
[2021-05-30] MEDS: atorvaSTATin 10 MG Tab PO SCH (09:02)
[2021-05-30] MEDS: Bumetanide 1 MG Tab PO SCH ×2 (09:02→14:06)
[2021-05-30] MEDS: Losartan 50 MG Tab PO SCH (09:02)
[2021-05-30] MEDS: Metoprolol Succinate 50 MG Tab.ER PO SCH (09:03)
--- NOTE | 2021-05-30 13:00 | PCM.PN ---
- General Info Date of Service: 05/30/21 Subjective Update: Ms. Whiting has shown improvement since yesterday. Edema in her lower extremities is significantly improved and overall strength is improving, today she was able to stand and take a few steps with minimal assistance. Hemoglobin has remained stable with no further evidence of active bleeding. Functional Status: Reports: Tolerating Diet, Urinating - Review of Systems General: Reports: Weakness, Fatigue. Denies: Fever, Chills Pulmonary: Reports: Shortness of Breath. Denies: Pleuritic Chest Pain, Cough, Sputum, Hemoptysis, Wheezing Cardiovascular: Reports: Dyspnea on Exertion, Edema. Denies: Chest Pain, Palpitations, Orthopnea, PND, Lightheadedness Gastrointestinal: Reports: No Symptoms Genitourinary: Reports: No Symptoms - Patient Data Vitals - Most Recent: Last Vital Signs Temp 97.6 F 05/30/21 11:22 Pulse 88 05/30/21 09:03 Resp 20 05/30/21 11:22 BP 104/43 L 05/30/21 11:22 Pulse Ox 94 L 05/30/21 11:22 Weight - Most Recent: 181 lb I&O - Last 24 Hours: Intake & Output 05/29/21 05/30/21 05/30/21 22:59 06:59 14:59 Intake Total 350 200 Output Total 150 350 500 Balance -150 0 -300 Lab Results Last 24 Hours: Laboratory Results - last 24 hr 05/29/21 05/30/21 05/30/21 Range/Units 16:52 04:25 04:25 WBC 6.9 (4.5-11.0) K/uL RBC 3.11 L (3.30-5.50) M/uL Hgb 9.5 L 8.7 L (12.0-15.0) g/dL Hct 28.5 L (36.0-48.0) % MCV 92 (80-98) fL MCH 28 (27-31) pg MCHC 31 L (32-36) % Plt Count 214 (150-400) K/uL Neut % (Auto) 75.8 H (36-66) % Lymph % (Auto) 8.4 L (24-44) % Dupage % (Auto) 12.7 H (2-6) % Eos % (Auto) 2.7 (2-4) % Baso % (Auto) 0.4 (0-1) % Sodium 141 (140-148) mmol/L Potassium 4.0 (3.6-5.2) mmol/L Chloride 103 (100-108) mmol/L Carbon Dioxide 33 H (21-32) mmol/L Anion Gap 9.0 (5.0-14.0) mmol/L BUN 75 H (7-18) mg/dL Creatinine 1.1 H (0.6-1.0) mg/dL Est Cr Clr Drug Dosing 30.11 mL/min Estimated GFR (MDRD) 47 L (>60) Glucose 92 (74-106) mg/dL Calcium 8.5 (8.5-10.1) mg/dL Med Orders - Current: Current Medications Acetaminophen (Acetaminophen 325 Mg Tab) 650 mg PO Q4H PRN PRN Reason: Pain (Mild 1-3)/fever Last Admin: 05/29/21 20:59 Dose: 650 mg Documented by: Albuterol (Albuterol 0.083% 2.5 Mg/3 Ml Neb Soln) 2.5 mg NEB Q4H PRN PRN Reason: shortness of breath/wheezing Albuterol/Ipratropium (Albuterol/Ipratropium 3.0-0.5 Mg/3 Ml Neb Soln) 3 ml NEB QIDRT [facility] Last Admin: 05/30/21 10:52 Dose: 3 ml Documented by: Atorvastatin Calcium (Atorvastatin 10 Mg Tab) 10 mg PO DAILY [facility] Last Admin: 05/30/21 09:02 Dose: 10 mg Documented by: Bumetanide (Bumetanide 1 Mg Tab) 1 mg PO BIDDIURETIC [facility] Losartan Potassium (Losartan 50 Mg Tab) 50 mg PO DAILY [facility] Last Admin: 05/30/21 09:02 Dose: 50 mg Documented by: Metoprolol Succinate (Metoprolol Succinate 50 Mg Tab.Er) 50 mg PO DAILY [facility] Last Admin: 05/30/21 09:03 Dose: 50 mg Documented by: Ondansetron HCl (Ondansetron 4 Mg/2 Ml Sdv) 4 mg IV Q4H PRN PRN Reason: Nausea/Vomiting Polyethylene Glycol (Polyethylene Glycol 3350 Powder 17 Gm Packet) 17 gm PO DAILY PRN PRN Reason: Constipation Sodium Chloride (Sodium Chloride 0.9% 10 Ml Syringe) 10 ml FLUSH ASDIRECTED PRN PRN Reason: Keep Vein Open Spironolactone (Spironolactone 25 Mg Tab) 25 mg PO DAILY [facility] Last Admin: 05/30/21 09:02 Dose: 25 mg Documented by: Discontinued Medications Albuterol/Ipratropium (Albuterol/Ipratropium 3.0-0.5 Mg/3 Ml Neb Soln) Confirm Administered Dose 3 ml .ROUTE .STK-MED ONE Stop: 05/28/21 15:54 Last Admin: 05/28/21 18:07 Dose: Not Given Documented by: Bumetanide (Bumetanide 1 Mg/4 Ml Mdv) 2 mg IVPUSH ONETIME ONE Stop: 05/27/21 15:17 Last Admin: 05/27/21 16:42 Dose: 1 mg Documented by: Bumetanide (Bumetanide 1 Mg Tab) 1 mg PO DAILY [facility] Last Admin: 05/30/21 09:02 Dose: 1 mg Documented by: Bumetanide (Bumetanide 1 Mg Tab) 1 mg PO ONETIME ONE Stop: 05/28/21 15:01 Last Admin: 05/28/21 14:38 Dose: 1 mg Documented by: Pantoprazole Sodium (Pantoprazole 40 Mg Vial) 40 mg IV Q12H [facility] Last Admin: 05/28/21 09:03 Dose: 40 mg Documented by: Rivaroxaban (Rivar[facility]aban 10 Mg Tab) [facility] Sodium Chloride (Sodium Chloride 0.9% 10 Ml Syringe) 10 ml FLUSH ASDIRECTED PRN PRN Reason: Keep Vein Open Last Admin: 05/27/21 16:43 Dose: 10 ml Documented by: Sodium Polystyrene Sulfonate (Sodium Polystyrene Sulfonate 15 Gm/60 Ml Susp 60 Ml Bot) 15 gm PO ONETIME ONE Stop: 05/27/21 19:12 Last Admin: 05/27/21 20:28 Dose: 15 gm Documented by: - Exam Quality Assessment: DVT Prophylaxis General: Alert, Oriented, Cooperative, Mild Distress Lungs: Clear to Auscultation, Normal Respiratory Effort, Decreased Breath Sounds Cardiovascular: Regular Rate, Regular Rhythm, Murmurs GI/Abdominal Exam: Soft, Non-Tender, No Organomegaly, No Distention Extremities: Pedal Edema (Posterior thighs and buttock), Leg Pain - Patient Data Lab Results Last 24 hrs: Laboratory Results - last 24 hr 05/29/21 05/30/21 05/30/21 Range/Units 16:52 04:25 04:25 WBC 6.9 (4.5-11.0) K/uL RBC 3.11 L (3.30-5.50) M/uL Hgb 9.5 L 8.7 L (12.0-15.0) g/dL Hct 28.5 L (36.0-48.0) % MCV 92 (80-98) fL MCH 28 (27-31) pg MCHC 31 L (32-36) % Plt Count 214 (150-400) K/uL Neut % (Auto) 75.8 H (36-66) % Lymph % (Auto) 8.4 L (24-44) % Dupage % (Auto) 12.7 H (2-6) % Eos % (Auto) 2.7 (2-4) % Baso % (Auto) 0.4 (0-1) % Sodium 141 (140-148) mmol/L Potassium 4.0 (3.6-5.2) mmol/L Chloride 103 (100-108) mmol/L Carbon Dioxide 33 H (21-32) mmol/L Anion Gap 9.0 (5.0-14.0) mmol/L BUN 75 H (7-18) mg/dL Creatinine 1.1 H (0.6-1.0) mg/dL Est Cr Clr Drug Dosing 30.11 mL/min Estimated GFR (MDRD) 47 L (>60) Glucose 92 (74-106) mg/dL Calcium 8.5 (8.5-10.1) mg/dL Result Diagrams: 05/30/21 04:25 05/30/21 04:25 Sepsis Event Note - Evaluation Sepsis Screening Result: No Definite Risk - Focused Exam Vital Signs: Vital Signs Temp Pulse Pulse Resp BP BP Pulse Ox 05/30/21 11:22 97.6 F 20 104/43 L 94 L 05/30/21 10:00 16 95 05/30/21 09:03 88 92/24 L 05/30/21 09:02 92/24 L 05/30/21 08:00 98 F 20 99/44 L 95 05/30/21 06:00 83 18 111/51 L 94 L 05/30/21 04:00 97.1 F 78 17 106/57 L 100 05/30/21 02:00 81 20 97/55 L 92 L - Problem List Review Problem List Initiated/Reviewed/Updated: Yes - My Orders Last 24 Hours: My Active Orders 05/30/21 14:00 Bumetanide [Bumex] 1 mg PO BIDDIURETIC 05/31/21 05:00 BASIC METABOLIC PANEL,BMP [CHEM] Timed CBC WITH AUTO DIFF [HEME] Timed - Plan Plan:: ASSESSMENT AND PLAN - SEVERE ANEMIA-likely secondary to chronic intermittent GI bleed complicated by current anticoagulation with Xarelto. Previous evaluation in [place] included incomplete colonoscopy and EGD with no obvious source of blood loss according to patient history. No evidence of active bleeding since admission. She has been transfused a total of 3 units of red blood cells -Twice daily Protonix -Follow-up hemoglobin in a.m. -Goal hemoglobin of greater than 8 because of underlying health problems i ncluding diastolic congestive heart failure, hypoxia, and pulmonary hypertension with cor pulmonale -Hold anticoagulation, if it is restarted consider Eliquis with reduced renal function DIASTOLIC CONGESTIVE HEART FAILURE/PULMONARY HYPERTENSION-she has been seen by cardiology earlier this year in [place] with recommendation for further evaluation concerning her pulmonary hypertension. Good improvement in peripheral edema over the past few days -Hold Norvasc -Bumex 1 mg p.o. twice daily -Continue all other outpatient CHF medications HYPERKALEMIA-resolved -Reassess potassium in a.m. CHRONIC KIDNEY DISEASE STAGE IIIb-GFR stable in the low 30s. -Closely monitor renal function and urine output CHRONIC ATRIAL FIBRILLATION -Hold anticoagulation today, reassess tomorrow, consider Eliquis if the plan is to continue MAINTENANCE ISSUES -DVT prophylaxis; current therapy with Xarelto should provide adequate DVT prophylaxis -GI prophylaxis; Protonix as above -Barnhart catheter; not indicated -Nutrition; mechanical soft CODE STATUS-FULL CODE, discussed with patient and daughter, she is considering her options for ongoing management. She would like to remain full code at this time. DISPOSITION-anticipate discharge to home after the hospital stay. PRIMARY CARE PROVIDER-she is currently in the process of establishing care with a primary care provider
[2021-05-30] MEDS: Acetaminophen 325 MG Tab PO PRN (21:11)
[2021-05-31] MEDS: Albuterol/Ipratropium 3.0-0.5 MG/3 ML Neb Soln NEB SCH ×4 (07:01→20:56)
[2021-05-31] MEDS: Metoprolol Succinate 50 MG Tab.ER PO SCH (08:31)
[2021-05-31] MEDS: atorvaSTATin 10 MG Tab PO SCH (08:33)
[2021-05-31] MEDS: Spironolactone 25 MG Tab PO SCH (08:33)
[2021-05-31] MEDS: Losartan 50 MG Tab PO SCH (08:33)
[2021-05-31] MEDS: Bumetanide 1 MG Tab PO SCH ×2 (08:35→13:36)
--- NOTE | 2021-05-31 10:29 | PCM.PN ---
- General Info Date of Service: 05/31/21 Subjective Update: There were no acute events overnight. Vital signs have all been stable. She reports that she feels a little better each day. Strength is improving and she is able to perform transfers by herself now. She does get winded with activity. Still on 2 L of oxygen. Lower extremity edema has been improving. Appetite is improving. Kidney function has been stable. There has been no evidence for bleeding and her hemoglobin has been stable. Functional Status: Reports: Pain Controlled, Tolerating Diet - Review of Systems General: Reports: Weakness. Denies: Fever - Patient Data Vitals - Most Recent: Last Vital Signs Temp 36.5 C 05/31/21 08:00 Pulse 92 05/31/21 09:54 Resp 28 H 05/31/21 09:54 BP 97/50 L 05/31/21 09:54 Pulse Ox 92 L 05/31/21 09:54 Weight - Most Recent: 82.1 kg I&O - Last 24 Hours: Intake & Output 05/30/21 05/31/21 05/31/21 22:59 06:59 14:59 Intake Total 400 200 Output Total 700 400 Balance -300 -200 Lab Results Last 24 Hours: Laboratory Results - last 24 hr 05/27/21 05/31/21 05/31/21 Range/Units 15:56 04:15 04:15 WBC 6.3 (4.5-11.0) K/uL RBC 3.03 L (3.30-5.50) M/uL Hgb 8.5 L (12.0-15.0) g/dL Hct 28.1 L (36.0-48.0) % MCV 93 (80-98) fL MCH 28 (27-31) pg MCHC 30 L (32-36) % Plt Count 209 (150-400) K/uL Neut % (Auto) 74.1 H (36-66) % Lymph % (Auto) 8.8 L (24-44) % Kern % (Auto) 12.9 H (2-6) % Eos % (Auto) 3.6 (2-4) % Baso % (Auto) 0.6 (0-1) % Sodium 142 (140-148) mmol/L Potassium 4.1 (3.6-5.2) mmol/L Chloride 103 (100-108) mmol/L Carbon Dioxide 35 H (21-32) mmol/L Anion Gap 8.1 (5.0-14.0) mmol/L BUN 66 H (7-18) mg/dL Creatinine 1.1 H (0.6-1.0) mg/dL Est Cr Clr Drug Dosing 30.11 mL/min Estimated GFR (MDRD) 47 L (>60) Glucose 97 (74-106) mg/dL Calcium 8.3 L (8.5-10.1) mg/dL Crossmatch See Detail Med Orders - Current: Current Medications Acetaminophen (Acetaminophen 325 Mg Tab) 650 mg PO Q4H PRN PRN Reason: Pain (Mild 1-3)/fever Last Admin: 05/30/21 21:11 Dose: 650 mg Documented by: Albuterol (Albuterol 0.083% 2.5 Mg/3 Ml Neb Soln) 2.5 mg NEB Q4H PRN PRN Reason: shortness of breath/wheezing Albuterol/Ipratropium (Albuterol/Ipratropium 3.0-0.5 Mg/3 Ml Neb Soln) 3 ml NEB QIDRT [facility] Last Admin: 05/31/21 07:01 Dose: 3 ml Documented by: Atorvastatin Calcium (Atorvastatin 10 Mg Tab) 10 mg PO DAILY [facility] Last Admin: 05/31/21 08:33 Dose: 10 mg Documented by: Bumetanide (Bumetanide 1 Mg Tab) 1 mg PO BIDDIURETIC [facility] Last Admin: 05/31/21 08:35 Dose: 1 mg Documented by: Losartan Potassium (Losartan 50 Mg Tab) 50 mg PO DAILY [facility] Last Admin: 05/31/21 08:33 Dose: 50 mg Documented by: Metoprolol Succinate (Metoprolol Succinate 50 Mg Tab.Er) 50 mg PO DAILY [facility] Last Admin: 05/31/21 08:31 Dose: 50 mg Documented by: Ondansetron HCl (Ondansetron 4 Mg/2 Ml Sdv) 4 mg IV Q4H PRN PRN Reason: Nausea/Vomiting Polyethylene Glycol (Polyethylene Glycol 3350 Powder 17 Gm Packet) 17 gm PO DAILY PRN PRN Reason: Constipation Sodium Chloride (Sodium Chloride 0.9% 10 Ml Syringe) 10 ml FLUSH ASDIRECTED PRN PRN Reason: Keep Vein Open Last Admin: 05/31/21 08:31 Dose: 10 ml Documented by: Spironolactone (Spironolactone 25 Mg Tab) 25 mg PO DAILY [facility] Last Admin: 05/31/21 08:33 Dose: 25 mg Documented by: Discontinued Medications Albuterol/Ipratropium (Albuterol/Ipratropium 3.0-0.5 Mg/3 Ml Neb Soln) Confirm Administered Dose 3 ml .ROUTE .STK-MED ONE Stop: 05/28/21 15:54 Last Admin: 05/28/21 18:07 Dose: Not Given Documented by: Bumetanide (Bumetanide 1 Mg/4 Ml Mdv) 2 mg IVPUSH ONETIME ONE Stop: 05/27/21 15:17 Last Admin: 05/27/21 16:42 Dose: 1 mg Documented by: Bumetanide (Bumetanide 1 Mg Tab) 1 mg PO DAILY [facility] Last Admin: 05/30/21 09:02 Dose: 1 mg Documented by: Bumetanide (Bumetanide 1 Mg Tab) 1 mg PO ONETIME ONE Stop: 05/28/21 15:01 Last Admin: 05/28/21 14:38 Dose: 1 mg Documented by: Pantoprazole Sodium (Pantoprazole 40 Mg Vial) 40 mg IV Q12H [facility] Last Admin: 05/28/21 09:03 Dose: 40 mg Documented by: Rivaroxaban (Rivaroxaban 10 Mg Tab) [facility] Sodium Chloride (Sodium Chloride 0.9% 10 Ml Syringe) 10 ml FLUSH ASDIRECTED PRN PRN Reason: Keep Vein Open Last Admin: 05/27/21 16:43 Dose: 10 ml Documented by: Sodium Polystyrene Sulfonate (Sodium Polystyrene Sulfonate 15 Gm/60 Ml Susp 60 Ml Bot) 15 gm PO ONETIME ONE Stop: 05/27/21 19:12 Last Admin: 05/27/21 20:28 Dose: 15 gm Documented by: - Exam Quality Assessment: Supplemental Oxygen General: Alert, Oriented, Cooperative, No Acute Distress Lungs: Normal Respiratory Effort, Decreased Breath Sounds (mild both bases) Cardiovascular: Regular Rate, Regular Rhythm, Murmurs GI/Abdominal Exam: Soft, No Distention Extremities: Pedal Edema (mild bilateral lower ext edema ). No: Increased Warmth Skin: Warm, Dry Psy/Mental Status: Alert, Normal Affect - Patient Data Lab Results Last 24 hrs: Laboratory Results - last 24 hr 05/27/21 05/31/21 05/31/21 Range/Units 15:56 04:15 04:15 WBC 6.3 (4.5-11.0) K/uL RBC 3.03 L (3.30-5.50) M/uL Hgb 8.5 L (12.0-15.0) g/dL Hct 28.1 L (36.0-48.0) % MCV 93 (80-98) fL MCH 28 (27-31) pg MCHC 30 L (32-36) % Plt Count 209 (150-400) K/uL Neut % (Auto) 74.1 H (36-66) % Lymph % (Auto) 8.8 L (24-44) % Kern % (Auto) 12.9 H (2-6) % Eos % (Auto) 3.6 (2-4) % Baso % (Auto) 0.6 (0-1) % Sodium 142 (140-148) mmol/L Potassium 4.1 (3.6-5.2) mmol/L Chloride 103 (100-108) mmol/L Carbon Dioxide 35 H (21-32) mmol/L Anion Gap 8.1 (5.0-14.0) mmol/L BUN 66 H (7-18) mg/dL Creatinine 1.1 H (0.6-1.0) mg/dL Est Cr Clr Drug Dosing 30.11 mL/min Estimated GFR (MDRD) 47 L (>60) Glucose 97 (74-106) mg/dL Calcium 8.3 L (8.5-10.1) mg/dL Crossmatch See Detail Result Diagrams: 05/31/21 04:15 05/31/21 04:15 Sepsis Event Note - Evaluation Sepsis Screening Result: No Definite Risk - Focused Exam Vital Signs: Vital Signs Temp Pulse Pulse Resp BP BP Pulse Ox 05/31/21 09:54 92 28 H 97/50 L 92 L 05/31/21 09:41 90 24 H 115/47 L 96 05/31/21 08:33 96/37 L 05/31/21 08:31 87 96/37 L 05/31/21 08:00 36.5 C 87 21 H 96/37 L 97 05/31/21 07:02 86 05/31/21 06:00 79 20 98/51 L 98 05/31/21 04:00 79 17 99/39 L 97 05/31/21 02:00 78 22 H 104/47 L 94 L 05/31/21 00:00 36.7 C 77 20 98/39 L 92 L - Problem List Review Problem List Initiated/Reviewed/Updated: Yes - My Orders Last 24 Hours: My Active Orders 05/31/21 10:26 Transfer Patient (Change bed) [ADT] Routine 05/31/21 10:27 Discontinue Telemetry Monitoring [Cardiac Monitoring Discontinue] [RC] Click to Edit 05/31/21 10:28 PT Evaluation and Treatment [CONS] Routine 06/01/21 05:00 BASIC METABOLIC PANEL,BMP [CHEM] Timed HGB [HEMOGLOBIN] [HEME] Timed - Plan Plan:: ASSESSMENT AND PLAN - SEVERE ANEMIA-likely secondary to chronic intermittent GI bleed complicated by current anticoagulation with Xarelto. EGD negative and colonoscopy incomplete hemoglobin stable the last couple of days.. -PPI -Follow-up hemoglobin in a.m. -Goal hemoglobin of greater than 8 because of underlying health problems including diastolic congestive heart failure, hypoxia, and pulmonary hypertension with cor pulmonale Plan to restart anticoagulation as discussed below- DIASTOLIC CONGESTIVE HEART FAILURE/SEVERE OUTPATIENT FOLLOW-UP WITH PULMONARY HYPERTENSION SPECIALIST PULMONARY HYPERTENSION-Good improvement in peripheral edema over the past few days. -Hold Norvasc -Bumex 1 mg p.o. twice daily -Continue all other outpatient CHF medications - HYPERKALEMIA-resolved -Reassess potassium in a.m. CHRONIC KIDNEY DISEASE STAGE IIIa-GFR has improved over the past couple of days. -Closely monitor renal function and urine output CHRONIC ATRIAL FIBRILLATION-we discussed risk of bleeding with the medication versus risk of clotting without the medication. She has significant risk factors and a very high CHADS-VASC score and my recommendation would be a trial of systemic anticoagulation while she is hospitalized. -Starting apixaban today MAINTENANCE ISSUES -DVT prophylaxis; current therapy with Xarelto should provide adequate DVT prophylaxis -GI prophylaxis; Protonix as above -Barnhart catheter; not indicated -Nutrition; mechanical soft CODE STATUS-FULL CODE, discussed with patient and daughter, she is considering her options for ongoing management. She would like to remain full code at this time. DISPOSITION-anticipate discharge to home with home care after the hospital stay. Suresh Bran MD
[2021-05-31] MEDS: Apixaban 2.5 MG Tab PO SCH ×2 (11:22→20:56)
[2021-05-31] MEDS: Acetaminophen 325 MG Tab PO PRN ×2 (15:00→21:37)
[2021-06-01] MEDS: Albuterol/Ipratropium 3.0-0.5 MG/3 ML Neb Soln NEB SCH ×4 (07:05→20:19)
[2021-06-01] MEDS: Bumetanide 1 MG Tab PO SCH (08:45)
[2021-06-01] MEDS: Spironolactone 25 MG Tab PO SCH (08:46)
[2021-06-01] MEDS: Losartan 50 MG Tab PO SCH (08:46)
[2021-06-01] MEDS: Apixaban 2.5 MG Tab PO SCH ×2 (08:49→20:19)
[2021-06-01] MEDS: Metoprolol Succinate 50 MG Tab.ER PO SCH (08:49)
[2021-06-01] MEDS: atorvaSTATin 10 MG Tab PO SCH (08:50)
--- NOTE | 2021-06-01 09:56 | PCM.PN ---
- General Info Date of Service: 06/01/21 Subjective Update: No acute events overnight. Oxygenation has been stable on 2 L. She does not report any shortness of breath. She has been able to cough up some sputum after nebulizer use. She has not had any fevers. Strength is steadily improving. Appetite has been good. No lower extremity edema. Hemoglobin stable with no evidence for bleeding. Functional Status: Reports: Pain Controlled, Tolerating Diet - Review of Systems General: Reports: Weakness Pulmonary: Reports: Shortness of Breath - Patient Data Vitals - Most Recent: Last Vital Signs Temp 36.8 C 06/01/21 09:00 Pulse 64 06/01/21 09:00 Resp 19 06/01/21 09:00 BP 110/67 06/01/21 09:00 Pulse Ox 94 L 06/01/21 09:00 Weight - Most Recent: 79.288 kg I&O - Last 24 Hours: Intake & Output 05/31/21 06/01/21 06/01/21 22:59 06:59 14:59 Output Total 400 Balance -400 Lab Results Last 24 Hours: Laboratory Results - last 24 hr 05/27/21 06/01/21 06/01/21 Range/Units 15:56 05:00 05:10 Hgb 8.8 L (12.0-15.0) g/dL Sodium 143 (140-148) mmol/L Potassium 4.4 (3.6-5.2) mmol/L Chloride 102 (100-108) mmol/L Carbon Dioxide 34 H (21-32) mmol/L Anion Gap 11.4 (5.0-14.0) mmol/L BUN 66 H (7-18) mg/dL Creatinine 1.2 H (0.6-1.0) mg/dL Est Cr Clr Drug Dosing 27.60 mL/min Estimated GFR (MDRD) 43 L (>60) Glucose 103 (74-106) mg/dL Calcium 8.4 L (8.5-10.1) mg/dL Crossmatch See Detail Med Orders - Current: Current Medications Acetaminophen (Acetaminophen 325 Mg Tab) 650 mg PO Q4H PRN PRN Reason: Pain (Mild 1-3)/fever Last Admin: 05/31/21 21:37 Dose: 650 mg Documented by: Albuterol (Albuterol 0.083% 2.5 Mg/3 Ml Neb Soln) 2.5 mg NEB Q4H PRN PRN Reason: shortness of breath/wheezing Albuterol/Ipratropium (Albuterol/Ipratropium 3.0-0.5 Mg/3 Ml Neb Soln) 3 ml NEB QIDRT [facility] Last Admin: 06/01/21 07:05 Dose: 3 ml Documented by: Apixaban (Apixaban 2.5 Mg Tab) 2.5 mg PO BID [facility] Last Admin: 06/01/21 08:49 Dose: 2.5 mg Documented by: Atorvastatin Calcium (Atorvastatin 10 Mg Tab) 10 mg PO DAILY [facility] Last Admin: 06/01/21 08:50 Dose: 10 mg Documented by: Bumetanide (Bumetanide 1 Mg Tab) 1 mg PO DAILY [facility] Losartan Potassium (Losartan 50 Mg Tab) 50 mg PO DAILY [facility] Last Admin: 06/01/21 08:46 Dose: 50 mg Documented by: Metoprolol Succinate (Metoprolol Succinate 50 Mg Tab.Er) 50 mg PO DAILY [facility] Last Admin: 06/01/21 08:49 Dose: 50 mg Documented by: Ondansetron HCl (Ondansetron 4 Mg/2 Ml Sdv) 4 mg IV Q4H PRN PRN Reason: Nausea/Vomiting Polyethylene Glycol (Polyethylene Glycol 3350 Powder 17 Gm Packet) 17 gm PO DAILY PRN PRN Reason: Constipation Sodium Chloride (Sodium Chloride 0.9% 10 Ml Syringe) 10 ml FLUSH ASDIRECTED PRN PRN Reason: Keep Vein Open Last Admin: 05/31/21 08:31 Dose: 10 ml Documented by: Spironolactone (Spironolactone 25 Mg Tab) 25 mg PO DAILY [facility] Last Admin: 06/01/21 08:46 Dose: 25 mg Documented by: Discontinued Medications Albuterol/Ipratropium (Albuterol/Ipratropium 3.0-0.5 Mg/3 Ml Neb Soln) Confirm Administered Dose 3 ml .ROUTE .STK-MED ONE Stop: 05/28/21 15:54 Last Admin: 05/28/21 18:07 Dose: Not Given Documented by: Bumetanide (Bumetanide 1 Mg/4 Ml Mdv) 2 mg IVPUSH ONETIME ONE Stop: 05/27/21 15:17 Last Admin: 05/27/21 16:42 Dose: 1 mg Documented by: Bumetanide (Bumetanide 1 Mg Tab) 1 mg PO DAILY [facility] Last Admin: 05/30/21 09:02 Dose: 1 mg Documented by: Bumetanide (Bumetanide 1 Mg Tab) 1 mg PO ONETIME ONE Stop: 05/28/21 15:01 Last Admin: 05/28/21 14:38 Dose: 1 mg Documented by: Bumetanide (Bumetanide 1 Mg Tab) 1 mg PO BIDDIURETIC [facility] Last Admin: 06/01/21 08:45 Dose: 1 mg Documented by: Pantoprazole Sodium (Pantoprazole 40 Mg Vial) 40 mg IV Q12H [facility] Last Admin: 05/28/21 09:03 Dose: 40 mg Documented by: Rivaroxaban (Rivaroxaban 10 Mg Tab) 20 mg PO WITHDINNER [facility] Sodium Chloride (Sodium Chloride 0.9% 10 Ml Syringe) 10 ml FLUSH ASDIRECTED PRN PRN Reason: Keep Vein Open Last Admin: 05/27/21 16:43 Dose: 10 ml Documented by: Sodium Polystyrene Sulfonate (Sodium Polystyrene Sulfonate 15 Gm/60 Ml Susp 60 Ml Bot) 15 gm PO ONETIME ONE Stop: 05/27/21 19:12 Last Admin: 05/27/21 20:28 Dose: 15 gm Documented by: - Exam Quality Assessment: Supplemental Oxygen General: Alert, Oriented, Cooperative, No Acute Distress Lungs: Normal Respiratory Effort. No: Crackles, Wheezing Cardiovascular: Regular Rate, Regular Rhythm, Murmurs GI/Abdominal Exam: Soft, No Distention Extremities: No Pedal Edema. No: Increased Warmth Skin: Warm, Dry Psy/Mental Status: Alert, Normal Affect - Patient Data Lab Results Last 24 hrs: Laboratory Results - last 24 hr 05/27/21 06/01/21 06/01/21 Range/Units 15:56 05:00 05:10 Hgb 8.8 L (12.0-15.0) g/dL Sodium 143 (140-148) mmol/L Potassium 4.4 (3.6-5.2) mmol/L Chloride 102 (100-108) mmol/L Carbon Dioxide 34 H (21-32) mmol/L Anion Gap 11.4 (5.0-14.0) mmol/L BUN 66 H (7-18) mg/dL Creatinine 1.2 H (0.6-1.0) mg/dL Est Cr Clr Drug Dosing 27.60 mL/min Estimated GFR (MDRD) 43 L (>60) Glucose 103 (74-106) mg/dL Calcium 8.4 L (8.5-10.1) mg/dL Crossmatch See Detail Result Diagrams: 06/01/21 05:00 06/01/21 05:10 Sepsis Event Note - Evaluation Sepsis Screening Result: No Definite Risk - Focused Exam Vital Signs: Vital Signs Temp Pulse Pulse Resp BP BP Pulse Ox 06/01/21 09:00 36.8 C 64 19 110/67 94 L 06/01/21 08:49 64 110/67 06/01/21 08:46 110/67 06/01/21 07:05 82 06/01/21 05:38 76 16 109/45 L 97 06/01/21 04:00 06/01/21 02:17 36.6 C 82 16 102/52 L 92 L 05/31/21 23:00 36.3 C 91 16 98/52 L 97 Pulse Ox 06/01/21 09:00 06/01/21 08:49 06/01/21 08:46 06/01/21 07:05 06/01/21 05:38 06/01/21 04:00 92 L 06/01/21 02:17 05/31/21 23:00 - Problem List Review Problem List Initiated/Reviewed/Updated: Yes - My Orders Last 24 Hours: My Active Orders 05/31/21 10:26 Transfer Patient (Change bed) [ADT] Routine 05/31/21 10:28 PT Evaluation and Treatment [CONS] Routine 05/31/21 10:45 Apixaban [Eliquis] 2.5 mg PO BID 06/01/21 09:55 FERRITIN [CHEM] Routine IRON/TIBC [CHEM] Routine 06/02/21 05:00 HGB [HEMOGLOBIN] [HEME] Timed 06/02/21 09:00 Bumetanide [Bumex] 1 mg PO DAILY - Plan Plan:: ASSESSMENT AND PLAN - SEVERE ANEMIA-likely secondary to chronic intermittent GI bleed complicated by recent anticoagulation with Xarelto. EGD negative and colonoscopy incomplete. Hemoglobin stable the last couple of days even after apixaban was started yesterday. -PPI -Follow-up hemoglobin in a.m. -Goal hemoglobin of greater than 8 because of underlying health problems including diastolic congestive heart failure, hypoxia, and pulmonary hypertension with cor pulmonale -Plan to restart anticoagulation as discussed below DIASTOLIC CONGESTIVE HEART FAILURE/SEVERE PULMONARY HYPERTENSION-edema has resolved. Still oxygen dependent. -Hold Norvasc -Bumex 1 mg p.o. daily -Continue all other outpatient CHF medications -Outpatient follow-up with pulmonary hypertension specialist HYPERKALEMIA-resolved -Reassess potassium in a.m. CHRONIC KIDNEY DISEASE STAGE IIIa-GFR has been stable. -Closely monitor renal function and urine output CHRONIC ATRIAL FIBRILLATION-we discussed risk of bleeding with the medication versus risk of clotting without the medication. She has significant risk factors and a very high CHADS-VASC score and my recommendation would be a trial of systemic anticoagulation while she is hospitalized. She is tolerating the anticoagulation so far. -Continue apixaban and additional medical management MAINTENANCE ISSUES -DVT prophylaxis; apixaban -GI prophylaxis; Protonix as above -Barnhart catheter; not indicated -Nutrition; mechanical soft DISPOSITION-anticipate discharge to home with home care after the hospital stay, possibly tomorrow if stable overnight Suresh Bran MD
[2021-06-01] MEDS: Acetaminophen 325 MG Tab PO PRN (21:07)
[2021-06-02] MEDS: Acetaminophen 325 MG Tab PO PRN (02:35)
[2021-06-02] MEDS: Albuterol/Ipratropium 3.0-0.5 MG/3 ML Neb Soln NEB SCH ×2 (06:59→10:34)
[2021-06-02] MEDS: Metoprolol Succinate 50 MG Tab.ER PO SCH (08:23)
[2021-06-02] MEDS: Losartan 50 MG Tab PO SCH (08:24)
[2021-06-02] MEDS: atorvaSTATin 10 MG Tab PO SCH (08:24)
[2021-06-02] MEDS: Spironolactone 25 MG Tab PO SCH (08:24)
[2021-06-02] MEDS: Apixaban 2.5 MG Tab PO SCH (08:25)
[2021-06-02] MEDS ORDERED: Bumetanide 1 MG Tab PO SCH (09:00)
--- NOTE | 2021-06-02 10:17 | PCM.DCSUM1 ---
Discharge Summary - Hospital Course Brief History: 85-year-old female with history of heart failure with preserved ejection fraction, pulmonary hypertension, chronic atrial fibrillation on anticoagulation who presented with recurrent gastrointestinal bleeding. She was admitted for management of gastrointestinal bleeding with severe anemia requiring transfusion. Diagnosis: Stroke: No - Discharge Data Discharge Date: 06/02/21 Discharge Disposition: Home, W Home Health Agency 06 Condition: Good - Referral to Home Health Date of Face to Face Encounter: 06/02/21 Reason for Homebound Status: Acute on chronic dyspnea and acute weakness following GI bleed Primary Care Physician: Adrienne Cortez NP Skilled Need: Nursing, PT and OT - Discharge Diagnosis/Problem(s) (1) Gastrointestinal bleeding SNOMED Code(s): 37991305 ICD Code: K92.2 - GASTROINTESTINAL HEMORRHAGE, UNSPECIFIED Status: Acute Qualifiers: GI bleed type/associated pathology: unspecified gastrointestinal hemorrhage type Qualified Code(s): K92.2 - Gastrointestinal hemorrhage, unspecified (2) Anemia due to blood loss, acute SNOMED Code(s): 225283392 ICD Code: D62 - ACUTE POSTHEMORRHAGIC ANEMIA Status: Acute (3) Heart failure with preserved ejection fraction SNOMED Code(s): 402658310 ICD Code: I50.30 - UNSPECIFIED DIASTOLIC (CONGESTIVE) HEART FAILURE Status: Chronic Qualifiers: Heart failure chronicity: chronic Qualified Code(s): I50.32 - Chronic diastolic (congestive) heart failure (4) Pulmonary hypertension SNOMED Code(s): 81354199 ICD Code: I27.20 - PULMONARY HYPERTENSION, UNSPECIFIED Status: Chronic (5) Stage 3a chronic kidney disease SNOMED Code(s): 045178382 ICD Code: N18.31 - CHRONIC KIDNEY DISEASE, STAGE 3A Status: Chronic (6) Atrial fibrillation SNOMED Code(s): 06997459 ICD Code: I48.91 - UNSPECIFIED ATRIAL FIBRILLATION Status: Chronic Qualifiers: Atrial fibrillation type: unspecified chronic Qualified Code(s): I48.20 - Chronic atrial fibrillation, unspecified; I48.2 - Chronic atrial fibrillation - Patient Summary/Data Consults: Consultations 05/31/21 10:28 PT Evaluation and Treatment [CONS] Routine Please Evaluate and Treat. PT Reason for Consult: Strengthening Special Instructions: transfer out of ICU This query below is only for informational purposes and is not editable. Admission Diagnosis/Problem: Anemia Hospital Course: Merary presented to the emergency room with progressive weakness, dyspnea and increasing lower extremity swelling. Work-up in the emergency room revealed severe anemia with a hemoglobin less than 6. She had evidence for an exacerbation of her heart failure with preserved ejection fraction and a slight worsening of her kidney function from baseline. She did receive 1 unit of blood in the emergency room and a second unit of blood was planned for transfusion. Initially there was some talk about transfer for a more specialized work-up with unidentified bleeding source and her significant pulmonary hypertension. No beds were available for transfer at the time of admission or the early part of the hospital stay. Initial management consisted of diuretics as well as the blood transfusion. We did see some improvement in the hemoglobin and edema in the first 24 hours. Her hemoglobin remains less than 8 which was her transfusion threshold given her significant cardiopulmonary issues so she did require a third unit of blood via transfusion. Since then her hemoglobin has been stable. We did hold her Xarelto at the time of admission. We have achieved excellent diuresis with a combination of medications and lower extremity compression. With the diuresis we have reached what I think is euvolemia. Her kidney function has improved throughout the course of the hospital stay and has been stable the last few days though her GFR does remain below 60. Her hemoglobin has been stable for several days. We did have several discussions about the risk of bleeding while on a systemic anticoagulant versus the risk of clotting with chronic atrial fibrillation. We felt that the risk of clotting was much larger given her elevated CHADS2-VASC score. Given her slight reduction in kidney function I think that apixaban would be a safer option for her. She agreed with this recommendation and we did try it while she was in the hospital. She has had 48 hours on the medication with no bleeding issues. Her hemoglobin has remained stable. She has no edema at this time. Her lung examination is benign. She does continue to require 2 L of oxygen which is her usual amount. Her strength has improved significantly throughout the hospital stay with a combination of diuresis and physical therapy. She feels well enough to go home. She has excellent resources at home with support from her family. We did check her iron studies and had only mild iron deficiency but we are planning to supplement iron after hospital discharge. She has follow-up with an uniformer at [facility] in [place] as well as hoped for a referral to see a pulmonary hypertension specialist. She feels well enough to go home and I think she is stable and safe for discharge at this point. At the time of discharge the plan is for her to be on apixaban rather than the rivaroxaban. We did also stop her amlodipine because of low blood pressures. She was interested in home care and a referral was made to help ease her transition home. - Patient Instructions Diet: Heart Healthy Diet Activity: As Tolerated Showering/Bathing: May Shower Other/Special Instructions: 1. You were in the hospital for evaluation of intermittent gastrointestinal bleeding that may have been related to your anticoagulation with rivaroxaban (Xarelto). You did require 3 units of blood via transfusion and your hemoglobin has been stable following those transfusions and stopping the anticoagulation. We did start a new anticoagulant apixaban (Eliquis) and there has been no evidence for bleeding so far. I recommend that we recheck your hemoglobin early next week, June 08 or . I also recommend that you take an iron supplement daily to help replenish your iron stores. I recommend Vitron-C 1 tablet once daily. 2. I have placed a referral to home health care. They will provide nursing, physical therapy and occupational therapy services to ease your transition home after the hospital stay. 3. Please stop taking amlodipine and rivaroxaban (Xarelto). 4. You may increase your activity as tolerated after the hospital stay. I would encourage you to remain as active as tolerated to help improve your cardiopulmonary status. - Discharge Plan *PRESCRIPTION DRUG MONITORING PROGRAM REVIEWED*: Not Applicable *COPY OF PRESCRIPTION DRUG MONITORING REPORT IN PATIENT THERESE: Not Applicable Prescriptions/Med Rec: Apixaban [Eliquis] 2.5 mg PO BID #60 tablet Ferrous Fumarate/Vitamin C [Vitron-C] 1 tab PO DAILY #30 tablet Home Medications: Home Meds Acetaminophen [Tylenol Arthritis] 650 mg PO Q8HR 05/27/21 [History] Bumetanide 1 mg PO DAILY 05/27/21 [History] Losartan [Cozaar] 50 mg PO DAILY 05/27/21 [History] Metoprolol Succinate 50 mg PO DAILY 05/27/21 [History] Nitroglycerin [Nitrostat] 0.4 mg SL ASDIRECTED PRN 05/27/21 [History] Simvastatin 20 mg PO DAILY 05/27/21 [History] Spironolactone [Aldactone] 25 mg PO DAILY 05/27/21 [History] Apixaban [Eliquis] 2.5 mg PO BID #60 tablet 06/02/21 [Rx] Ferrous Fumarate/Vitamin C [Vitron-C] 1 tab PO DAILY #30 tablet 06/02/21 [Rx] Oxygen Therapy Mode: Nasal Cannula Oxygen Flow Rate (L/min): 2 Patient Handouts: Pulmonary Hypertension, Apixaban oral tablets Referrals: Adrienne Cortez NP [Primary Care Provider] - 06/10/21 1:30 pm (Please arrive 15 minutes early to register for your appointment.) - Discharge Summary/Plan Comment DC Time >30 min.: Yes Total # of Minutes for Discharge Time: 45-coordinating follow-up with home care and cardiology - Patient Data Vitals - Most Recent: Last Vital Signs Temp 36.0 C L 06/02/21 07:52 Pulse 64 06/02/21 08:23 Resp 15 06/02/21 07:52 BP 129/62 06/02/21 08:24 Pulse Ox 95 06/02/21 07:52 Weight - Most Recent: 77.4 kg I&O - Last 24 hours: Intake & Output 06/01/21 06/02/21 06/02/21 22:59 06:59 14:59 Intake Total 340 400 Output Total 250 150 Balance 90 250 Lab Results - Last 24 hrs: Laboratory Results - last 24 hr 06/01/21 06/01/21 06/02/21 Range/Units 09:55 09:55 04:22 Hgb 8.8 L (12.0-15.0) g/dL Iron 29 L (50-170) ug/dL TIBC 321 (250-450) ug/dl % Saturation 9 L (20-55) % Ferritin 246 (8-388) ng/ml Med Orders - Current: Current Medications Acetaminophen (Acetaminophen 325 Mg Tab) 650 mg PO Q4H PRN PRN Reason: Pain (Mild 1-3)/fever Last Admin: 06/02/21 02:35 Dose: 650 mg Documented by: Albuterol (Albuterol 0.083% 2.5 Mg/3 Ml Neb Soln) 2.5 mg NEB Q4H PRN PRN Reason: shortness of breath/wheezing Albuterol/Ipratropium (Albuterol/Ipratropium 3.0-0.5 Mg/3 Ml Neb Soln) 3 ml NEB QIDRT [facility] Last Admin: 06/02/21 06:59 Dose: 3 ml Documented by: Apixaban (Apixaban 2.5 Mg Tab) 2.5 mg PO BID [facility] Last Admin: 06/02/21 08:25 Dose: 2.5 mg Documented by: Atorvastatin Calcium (Atorvastatin 10 Mg Tab) 10 mg PO DAILY [facility] Last Admin: 06/02/21 08:24 Dose: 10 mg Documented by: Bumetanide (Bumetanide 1 Mg Tab) 1 mg PO DAILY [facility] Last Admin: 06/02/21 08:23 Dose: 1 mg Documented by: Losartan Potassium (Losartan 50 Mg Tab) 50 mg PO DAILY [facility] Last Admin: 06/02/21 08:24 Dose: 50 mg Documented by: Metoprolol Succinate (Metoprolol Succinate 50 Mg Tab.Er) 50 mg PO DAILY [facility] Last Admin: 06/02/21 08:23 Dose: 50 mg Documented by: Ondansetron HCl (Ondansetron 4 Mg/2 Ml Sdv) 4 mg IV Q4H PRN PRN Reason: Nausea/Vomiting Polyethylene Glycol (Polyethylene Glycol 3350 Powder 17 Gm Packet) 17 gm PO DAILY PRN PRN Reason: Constipation Sodium Chloride (Sodium Chloride 0.9% 10 Ml Syringe) 10 ml FLUSH ASDIRECTED PRN PRN Reason: Keep Vein Open Last Admin: 05/31/21 08:31 Dose: 10 ml Documented by: Spironolactone (Spironolactone 25 Mg Tab) 25 mg PO DAILY [facility] Last Admin: 06/02/21 08:24 Dose: 25 mg Documented by: Discontinued Medications Albuterol/Ipratropium (Albuterol/Ipratropium 3.0-0.5 Mg/3 Ml Neb Soln) Confirm Administered Dose 3 ml .ROUTE .STK-MED ONE Stop: 05/28/21 15:54 Last Admin: 05/28/21 18:07 Dose: Not Given Documented by: Bumetanide (Bumetanide 1 Mg/4 Ml Mdv) 2 mg IVPUSH ONETIME ONE Stop: 05/27/21 15:17 Last Admin: 05/27/21 16:42 Dose: 1 mg Documented by: Bumetanide (Bumetanide 1 Mg Tab) 1 mg PO DAILY [facility] Last Admin: 05/30/21 09:02 Dose: 1 mg Documented by: Bumetanide (Bumetanide 1 Mg Tab) 1 mg PO ONETIME ONE Stop: 05/28/21 15:01 Last Admin: 05/28/21 14:38 Dose: 1 mg Documented by: Bumetanide (Bumetanide 1 Mg Tab) 1 mg PO BIDDIURETIC [facility] Last Admin: 06/01/21 08:45 Dose: 1 mg Documented by: Pantoprazole Sodium (Pantoprazole 40 Mg Vial) 40 mg IV Q12H [facility] Last Admin: 05/28/21 09:03 Dose: 40 mg Documented by: Rivaroxaban (Rivaroxaban 10 Mg Tab) 20 mg PO JOSELITO [facility] Sodium Chloride (Sodium Chloride 0.9% 10 Ml Syringe) 10 ml FLUSH ASDIRECTED PRN PRN Reason: Keep Vein Open Last Admin: 05/27/21 16:43 Dose: 10 ml Documented by: Sodium Polystyrene Sulfonate (Sodium Polystyrene Sulfonate 15 Gm/60 Ml Susp 60 Ml Bot) 15 gm PO ONETIME ONE Stop: 05/27/21 19:12 Last Admin: 05/27/21 20:28 Dose: 15 gm Documented by: *Q Meaningful Use (DIS) - VTE *Q VTE Pharmacological Contraindications *Q: High INR Value
== END 2021-06-02 13:38 | disposition home health service (06) | DRG 378 ==
LOC: JP.ED 14:27 → JP.ICU 18:51
PROVIDERS: ADMIT Hospitalist; ATTEND Internal Medicine
PROC: 30233N1 Transfusion of Nonautologous Red Blood Cells into Peripheral Vein, Percutaneous Approach (ICD-10-PCS; principal; 2021-05-27)
DX: D64.9 Anemia, unspecified (principal); I48.91 Unspecified atrial fibrillation; I50.9 Heart failure, unspecified; E78.00 Pure hypercholesterolemia, unspecified; I11.0 Hypertensive heart disease with heart failure; K92.2 Gastrointestinal hemorrhage, unspecified; D62 Acute posthemorrhagic anemia; Z87.19 Personal history of other diseases of the digestive system; I50.32 Chronic diastolic (congestive) heart failure; I48.20 Chronic atrial fibrillation, unspecified; I13.0 Hypertensive heart and chronic kidney disease with heart failure and stage 1 through stage 4 chronic kidney disease, or unspecified chronic kidney disease; I27.20 Pulmonary hypertension, unspecified; N18.31 Chronic kidney disease, stage 3a; E87.5 Hyperkalemia; Z79.01 Long term (current) use of anticoagulants; Z79.899 Other long term (current) drug therapy; Z85.3 Personal history of malignant neoplasm of breast; Z20.822 Contact with and (suspected) exposure to COVID-19
CPT/HCPCS: 0241U; 36415; 36430; 71045; 80048; 80053; 82728; 83550; 83605; 83735; 83880; 84484; 85018; 85025; 85027; 86850; 86900; 86901; 86920; 86922; 93005; 94640; 96374; 97110; 97116; 97162; 99285; A9270-GY; C9113; J3490; J7620-GY; P9016

== ENCOUNTER 2023-08-07 09:28 | Inpatient (IN) | payer MEDICARE ==
[2023-08-07 10:48] LABS: BASOPHILS ABSOLUTE AUTO 0.07 K/uL (0.00-0.10); BASOPHILS PERCENT AUTO 0.9 % (0.1-1.3); EOSINOPHILS ABSOLUTE AUTO 0.13 K/uL (0.00-0.40); EOSINOPHILS PERCENT AUTO 1.8 % (0.0-5.4); HEMATOCRIT 38.2 % (34.3-46.0); HEMOGLOBIN 13.1 g/dL (11.2-15.5); IMMATURE GRAN ABSOLUTE AUTO 0.05 K/uL (0.00-0.23); IMMATURE GRAN PERCENT AUTO 0.7 % (0.0-0.7); LYMPHOCYTES ABSOLUTE AUTO 0.39 K/uL (0.8-3.3); LYMPHOCYTES PERCENT AUTO 5.3 % (11.4-47.7); MEAN CORPUSCULAR HEMOGLOBIN 31.1 pg (31.6-35.5); MEAN CORPUSCULAR HGB CONC 34.3 g/dL (31.6-35.5); MEAN CORPUSCULAR VOLUME 90.7 fL (81.4-99.0); MONOCYTES ABSOLUTE AUTO 0.88 K/uL (0.20-0.90); MONOCYTES PERCENT AUTO 11.9 % (3.3-12.6); NEUTROPHILS ABSOLUTE AUTO 5.87 K/uL (1.0-7.6); NEUTROPHILS PERCENT AUTO 79.4 % (40.0-78.1); PLATELET COUNT,PLT 188 K/uL (130-375); RED BLOOD CELL COUNT 4.21 M/uL (3.77-5.24); WHITE BLOOD CELL COUNT,WBC 7.4 K/uL (3.2-11.0)
[2023-08-07 11:20] LABS: A/G RATIO 0.7 (1.2-2.2); ALANINE AMINOTRANSFERASE,ALT 17 U/L (12-78); ALBUMIN 2.8 g/dL (3.4-5.0); ALKALINE PHOSPHATASE 141 U/L (46-116); ASPARTATE AMNIOTRANSFERASE,AST 23 U/L (15-37); BILIRUBIN TOTAL 1.3 mg/dL (0.2-1.0); CALCIUM 9.1 mg/dL (8.5-10.1); CARBON DIOXIDE,CO2 28 mmol/L (21-32); CHLORIDE,CL 102 mmol/L (100-108); CREATININE 2.3 mg/dL (0.6-1.0); EST CRCL DRUG DOSING (CG) 13.89 mL/min; ESTIMATED GFR 20 mL/min (>60); GLUCOSE RANDOM 134 mg/dL (74-106); POTASSIUM,K 5.8 mmol/L (3.6-5.2); PRO B-TYPE NATRIUR PEPT,BNPPRO 18423 pg/mL (5-450); PROTEIN TOTAL,TP 6.6 g/dL (6.4-8.2); SODIUM,NA 140 mmol/L (140-148); TROPONIN I HIGH SENSITIVITY 40.5 pg/mL (<=60.3)
[2023-08-07 11:21] LABS: ANION GAP 15.8 mmol/L (5.0-14.0); BLOOD UREA NITROGEN,BUN 144 mg/dL (7-18)
[2023-08-07] MEDS: Bumetanide 1 MG/4 ML MDV IVPUSH ONE (11:45)
[2023-08-07] MEDS: Sodium Chloride 0.9% 10 ML Syringe FLUSH PRN (11:46)
[2023-08-07 13:19] LABS: APPEARANCE,URINE CLEAR (CLEAR); BILIRUBIN,URINE NEGATIVE (NEGATIVE); COLOR,URINE YELLOW (YELLOW); GLUCOSE,URINE NEGATIVE (NEGATIVE); KETONES,URINE NEGATIVE (NEGATIVE); LEUKOCYTE ESTERASE,URINE NEGATIVE (NEGATIVE); NITRITE,URINE NEGATIVE (NEGATIVE); OCCULT BLOOD,URINE NEGATIVE (NEGATIVE); PROTEIN,URINE NEGATIVE (NEGATIVE)
[2023-08-07 13:23] LABS: AMORPHOUS SEDIMENT,URINE NOT SEEN; BACTERIA,URINE NOT SEEN; EPITHELIAL CELLS,URINE MODERATE; MUCUS,URINE FEW; RBC,URINE NOT SEEN (0-5); WBC,URINE NOT SEEN (0-5)
[2023-08-07 13:58] LABS: CORONAVIRUS COVID-19 NAA NEGATIVE (NEGATIVE); INFLUENZA A NAA NEGATIVE (NEGATIVE); INFLUENZA B NAA NEGATIVE (NEGATIVE); RESPIRATORY SYNCYTIAL VIR NAA NEGATIVE (NEGATIVE)
[2023-08-07] MEDS ORDERED: Sennosides/Docusate Sodium 50-8.6 MG Tab PO PRN (14:04)
[2023-08-07] MEDS ORDERED: Ondansetron 4 MG Tab.DIS PO PRN (14:04)
[2023-08-07] MEDS ORDERED: Albuterol 0.083% 2.5 MG/3 ML Neb Soln NEB PRN (14:04)
[2023-08-07] MEDS ORDERED: Magnesium Hydroxide 400 MG/5 ML Susp 30 ML Cup PO PRN (14:04)
[2023-08-07] MEDS: Acetaminophen 325 MG Tab PO PRN (20:15)
[2023-08-07] MEDS: Melatonin 3 MG Tab PO SCH (20:16)
[2023-08-08] MEDS: Bumetanide 2.5 MG/10 ML MDV IVPUSH SCH (01:04)
[2023-08-08 07:04] LABS: CALCIUM 9.1 mg/dL (8.5-10.1); CREATININE 2.3 mg/dL (0.6-1.0); EST CRCL DRUG DOSING (CG) 13.89 mL/min; MAGNESIUM 2.2 mg/dL (1.8-2.4); POTASSIUM,K 5.4 mmol/L (3.6-5.2)
[2023-08-08 07:07] LABS: HEMATOCRIT 35.5 % (34.3-46.0); HEMOGLOBIN 12.1 g/dL (11.2-15.5); MEAN CORPUSCULAR HEMOGLOBIN 30.9 pg (31.6-35.5); MEAN CORPUSCULAR HGB CONC 34.1 g/dL (31.6-35.5); MEAN CORPUSCULAR VOLUME 90.8 fL (81.4-99.0); RED BLOOD CELL COUNT 3.91 M/uL (3.77-5.24); WHITE BLOOD CELL COUNT,WBC 6.3 K/uL (3.2-11.0)
[2023-08-08 07:09] LABS: ANION GAP 17.4 mmol/L (5.0-14.0)
[2023-08-08] MEDS: Tiotropium Bromide 4 GM Inhalation Spray (2.5mcg/1 dose; 10 doses) INH SCH (07:46)
[2023-08-08] MEDS: Pantoprazole 40 MG Tab.CR PO SCH (08:14)
[2023-08-08] MEDS: Allopurinol 100 MG Tab PO SCH (08:14)
[2023-08-08] MEDS: atorvaSTATin 10 MG Tab PO SCH (08:14)
[2023-08-08] MEDS: Multivitamins with Iron/Calcium/Folic Acid/Minerals Tab PO SCH (08:14)
[2023-08-08] MEDS: Metoprolol Succinate 50 MG Tab.ER PO SCH (08:15)
[2023-08-08] MEDS: Morphine 10 MG/0.5 ML Oral Syringe PO PRN (16:37)
[2023-08-08] MEDS: Ondansetron 4 MG/2 ML SDV IV PRN (23:08)
[2023-08-09] MEDS: Bumetanide 2.5 MG/10 ML MDV IVPUSH SCH (04:31)
[2023-08-09 05:56] LABS: ANION GAP 8.3 mmol/L (5.0-14.0); CALCIUM 8.7 mg/dL (8.5-10.1); CREATININE 2.4 mg/dL (0.6-1.0); EST CRCL DRUG DOSING (CG) 13.31 mL/min; POTASSIUM,K 5.2 mmol/L (3.6-5.2)
[2023-08-09] MEDS: LORazepam ORAL Concentrate 1MG/0.5ML U/D PO PRN (18:22)
[2023-08-10] MEDS ORDERED: Atropine Sulfate 1% Ophth 2 ML Drops OP PRN (20:29)
[2023-08-10] MEDS ORDERED: Atropine Sulfate 1% Ophth 2 ML Drops SL PRN (20:34)
[2023-08-11] MEDS ORDERED: Atropine Sulfate 1% Ophth 2 ML Drops SL PRN (06:57)
== END 2023-08-12 12:00 | disposition expired | DRG 291 ==
LOC: JP.ED 09:28 → JP.MS 13:41
PROVIDERS: ADMIT Internal Medicine; ATTEND Internal Medicine
DX: I48.20 Chronic atrial fibrillation, unspecified (principal); I11.0 Hypertensive heart disease with heart failure; I50.9 Heart failure, unspecified; R09.02 Hypoxemia; I13.0 Hypertensive heart and chronic kidney disease with heart failure and stage 1 through stage 4 chronic kidney disease, or unspecified chronic kidney disease; I50.33 Acute on chronic diastolic (congestive) heart failure; J96.01 Acute respiratory failure with hypoxia; N17.9 Acute kidney failure, unspecified; I48.21 Permanent atrial fibrillation; Z66 Do not resuscitate; Z51.5 Encounter for palliative care; D63.1 Anemia in chronic kidney disease; N18.30 Chronic kidney disease, stage 3 unspecified; M19.90 Unspecified osteoarthritis, unspecified site; E78.00 Pure hypercholesterolemia, unspecified; I27.20 Pulmonary hypertension, unspecified; E87.5 Hyperkalemia; Z79.899 Other long term (current) drug therapy; Z79.51 Long term (current) use of inhaled steroids; Z90.10 Acquired absence of unspecified breast and nipple
CPT/HCPCS: 0241U; 36415; 71045; 71045-26; 80048; 80053; 81001; 83605; 83735; 83880; 84132; 84484; 85025; 85027; 93005; 93010; 96374; 97161-GP; 97530-GP; 99223; 99233; 99238; 99285; 99285-25; A9270-GY; J2405; J3490